=== PATIENT | male | born 1960 | race Caucasian/White ===

== ENCOUNTER → 2018-06-04 16:26 | Outpatient (REF) | payer MEDICARE, SELFPAY ==
[2018-06-08 02:10] LABS: Codeine Negative ng/mL (Cutoff: 25); Dihydrocodeine 629 ng/mL (Cutoff: 25); Hydrocodone 718 ng/mL (Cutoff: 25); Hydromorphone 210 ng/mL (Cutoff: 25); Morphine Negative ng/mL (Cutoff: 25); Naloxone Negative ng/mL (Cutoff: 25); Norhydrocodone 851 ng/mL (Cutoff: 25); Noroxycodone Negative ng/mL (Cutoff: 25); Noroxymorphone Negative ng/mL (Cutoff: 25); Opiates Interpretation Positive.
[2018-06-10 11:32] LABS: Amphetamine Negative ng/mL (Cutoff: 25); Amphetamines Interpretation Negative.; MDA (Ecstasy Metabolite) Negative ng/mL (Cutoff: 25); MDMA (Ecstasy) Negative ng/mL (Cutoff: 25); Methamphetamine Negative ng/mL (Cutoff: 25); Phentermine Negative ng/mL (Cutoff: 25); Pseudoephedrine/Ephedrine Negative ng/mL (Cutoff: 25)
== END ==
LOC: NCHCN 16:26
PROVIDERS: PCP Family Medicine; Visit Provider Family Medicine
DX: M79.605 Pain in left leg (principal); G89.29 Other chronic pain; Z79.891 Long term (current) use of opiate analgesic
CPT/HCPCS: 80324; 80361

== ENCOUNTER 2018-08-21 16:36 | Outpatient (REF) | payer MEDICARE, SELFPAY ==
[2018-08-26 07:24] LABS: Amphetamine Negative ng/mL (Cutoff: 25); Amphetamines Interpretation Negative.; MDA (Ecstasy Metabolite) Negative ng/mL (Cutoff: 25); MDMA (Ecstasy) Negative ng/mL (Cutoff: 25); Methamphetamine Negative ng/mL (Cutoff: 25); Phentermine Negative ng/mL (Cutoff: 25); Pseudoephedrine/Ephedrine Negative ng/mL (Cutoff: 25)
[2018-08-27] LABS: Codeine Negative ng/mL (Cutoff: 25); Dihydrocodeine 1145 ng/mL (Cutoff: 25); Hydrocodone 3025 ng/mL (Cutoff: 25); Hydromorphone 493 ng/mL (Cutoff: 25); Morphine Negative ng/mL (Cutoff: 25); Naloxone Negative ng/mL (Cutoff: 25); Norhydrocodone 2287 ng/mL (Cutoff: 25); Noroxymorphone 32 ng/mL (Cutoff: 25); Opiates Interpretation Positive.
== END 2018-08-21 16:56 ==
LOC: NCHCN 16:36
PROVIDERS: PCP Family Medicine; Visit Provider Family Medicine
DX: M79.606 Pain in leg, unspecified (principal); F11.20 Opioid dependence, uncomplicated; F15.20 Other stimulant dependence, uncomplicated
CPT/HCPCS: 80324; 80361

== ENCOUNTER 2018-12-21 10:41 | Outpatient (CLI) | payer MEDICARE, SELFPAY | END 2018-12-21 11:01 | PROVIDERS: PCP Family Medicine; Visit Provider Internal Medicine Interventional Cardiology | DX: I48.91 Unspecified atrial fibrillation (principal); I42.9 Cardiomyopathy, unspecified; G47.30 Sleep apnea, unspecified; E66.01 Morbid (severe) obesity due to excess calories; I77.819 Aortic ectasia, unspecified site; I10 Essential (primary) hypertension; E11.9 Type 2 diabetes mellitus without complications; Z79.4 Long term (current) use of insulin; F17.210 Nicotine dependence, cigarettes, uncomplicated | CPT/HCPCS: 93005; 93010; 99213 ==

== ENCOUNTER 2019-01-11 01:20 | Outpatient (CLI) | payer MEDICARE, SELFPAY ==
--- NOTE | 2019-01-11 14:45 | DI.RAD_ITS ---
SYMPTOM/DIAGNOSIS: CELLULITIS, L03.90, NO IMPROVING ON ANTIBIOTICS LEFT FOOT: Hardware is seen in the distal tibia. There are degenerative changes of the tibiotalar joint. The bones appear somewhat osteoporotic. Degenerative changes are noted at the talonavicular joint and navicular cuneiform joints as well as first MTP joint. No bony erosions are identified. There may be some dorsal soft tissue swelling. IMPRESSION: Degenerative changes. No fracture or evidence of bony erosions.
== END 2019-01-11 01:40 ==
PROVIDERS: PCP Family Medicine; Visit Provider Nurse Practitioner Family
DX: L03.116 Cellulitis of left lower limb (principal); M19.072 Primary osteoarthritis, left ankle and foot; M85.88 Other specified disorders of bone density and structure, other site; Z79.2 Long term (current) use of antibiotics
CPT/HCPCS: 73630

== ENCOUNTER 2019-03-17 00:26 | Outpatient (CLI) | payer MEDICARE, SELFPAY ==
--- NOTE | 2019-03-17 14:15 | MERGE_ITS ---
*[facility]* *[facility]* [address] [place] [address] Date of study: 03/17/2019 Transthoracic Echocardiography M-mode, complete 2D, complete spectral Doppler, and color Doppler *STUDY CONCLUSIONS* Impressions: Biventricular dysfunction, improved from the 2017 study. Summary: 1. Left ventricle: The cavity size was normal. Wall thickness was increased increased in a pattern of mild to moderate LVH. Systolic function was normal. The estimated ejection fraction was 55-60%. Wall motion was normal; there were no regional wall motion abnormalities. Findings consistent with diastolic dysfunction. 2. Aorta: The aorta was mildly dilated. 3. Left atrium: The atrium was mildly dilated. 4. Right ventricle: The cavity size was normal. Wall thickness was normal. Systolic function was normal. 5. Right atrium: The atrium was dilated. 6. Pulmonary arteries: Pulmonary systolic pressure was at the upper limits of normal, in the range of 40mm Hg to 45mm Hg. *PATIENT PRESENTATION* Height: 190.5cm ((75in) ) S/D Pressure: 112 / 68 Weight: 137.4kg ((302.4lb) ) BSA: 2.75m^2 Test start time: 02:20 PM. Test stop time: 03:20 PM. ORDERING Jaiden Lux MD REFERRING Jaiden Lux MD CONSULTING Briana Dorsey V PERFORMING Unknown PERFORMING [facility] [employer] MECH[employer]IC RT Rafy (R)(CT), LEXIS *PROCEDURE DATA* Procedure information: The patient was identified by two identifiers. This study was interpreted by [facility]. Pertinent images and digital data are archived for permanent storage and are available for subsequent review. Comparison was made to the study of 12/10/2016. Study status: Routine. Transthoracic echocardiography. M-mode, complete 2D, complete spectral Doppler, and color Doppler. A Transthoracic Echocardiogram was performed. Scanning was performed from the parasternal, apical, subcostal, and suprasternal notch acoustic windows. Images were obtained using an [id number] cardiac ultrasound machine. Image quality was adequate. Study completion: The patient tolerated the procedure well. There were no complications. History: PMH: Afib with RVR cardiomyopathy. I48.9+1, i42.9. *CARDIAC ANATOMY* Left ventricle: The cavity size was normal. Wall thickness was increased increased in a pattern of mild to moderate LVH. Systolic function was normal. The estimated ejection fraction was 55-60%. Wall motion was normal; there were no regional wall motion abnormalities. Findings consistent with diastolic dysfunction. Aortic valve: Trileaflet; normal thickness leaflets. Mobility was not restricted. Doppler: Transvalvular velocity was within the normal range. There was no stenosis. There was no significant regurgitation. VTI ratio of LVOT to aortic valve: 0.75. Valve area (VTI): 3.1cm^2. Indexed valve area (VTI): 1.1cm^2/m^2. Peak velocity ratio of LVOT to aortic valve: 0.77. Valve area (Vmax): 3.2cm^2. Indexed valve area (Vmax): 1.2cm^2/m^2. Mean velocity ratio of LVOT to aortic valve: 0.76. Valve area (Vmean): 3.2cm^2. Indexed valve area (Vmean): 1.2cm^2/m^2. Mean gradient (S): 4.4mm Hg. Peak gradient (S): 7mm Hg. Aorta: The aorta was mildly dilated. Aortic root: The aortic root was mildly dilated. Ascending aorta: The ascending aorta was mildly dilated. Mitral valve: Mildly thickened leaflets. Mobility was not restricted. Doppler: Transvalvular velocity was within the normal range. There was no evidence for stenosis. There was no significant regurgitation. Valve area by pressure half-time: 4.4cm^2. Indexed valve area by pressure half-time: 1.6cm^2/m^2. Peak gradient (D): 5.5mm Hg. Left atrium: The atrium was mildly dilated. Right ventricle: The cavity size was normal. Wall thickness was normal. Systolic function was normal. Pulmonic valve: Structurally normal valve. Doppler: Transvalvular velocity was within the normal range. There was no evidence for stenosis. There was no significant regurgitation. Peak gradient (S): 3.5mm Hg. Tricuspid valve: Structurally normal valve. Doppler: Transvalvular velocity was within the normal range. There was no evidence for stenosis. There was mild regurgitation. Pulmonary artery: Pulmonary systolic pressure was at the upper limits of normal, in the range of 40mm Hg to 45mm Hg. Right atrium: The atrium was dilated. Pericardium: There was no pericardial effusion. Systemic veins: Inferior vena cava: Well visualized. The vessel was patent and normal in size. The respirophasic diameter changes were in the normal range (greater than or equal to 50%). Baseline ECG: Normal sinus rhythm. Measurements Left ventricle Value 12/10/2016 Reference LV ID, ED, PLAX 5.2 cm 5.6 3.5 - 6.0 LV ID, ES, PLAX 3.3 cm 4.3 2.1 - 4.0 LV PW thickness, ED, PLAX 1.1 cm 1.4 LV end-diastolic volume, 109 ml 1-p A2C LV ejection fraction, 1-p 69 % 33 A2C LV end-diastolic volume, 123 ml 1-p A4C LV ejection fraction, 1-p 54 % 39 A4C LV e', lateral 0.088 m/sec LV E/e', lateral 13 LV e', medial 0.084 m/sec LV E/e', medial 14 LV e', average 0.086 m/sec LV E/e', average 14 Ventricular septum Value 12/10/2016 Reference IVS thickness, ED, PLAX 1.5 cm 1.4 LVOT Value 12/10/2016 Reference LVOT ID, A-P 2.3 cm 2.4 LVOT area 4.2 cm^2 4.4 LVOT peak velocity, S 1.02 m/sec 0.64 LVOT mean velocity, S 0.77 m/sec LVOT VTI, S 23.1 cm 13.7 LVOT peak gradient, S 4.2 mm Hg LVOT mean gradient, S 2.6 mm Hg 1.1 Stroke volume (SV), LVOT 97 ml DP Stroke index (SV/bsa), 35 ml/m^2 LVOT DP Aortic valve Value 12/10/2016 Reference Aortic valve peak 1.3 m/sec velocity, S Aortic valve mean 1.02 m/sec velocity, S Aortic valve VTI, S 31.0 cm Aortic mean gradient, S 4.4 mm Hg Aortic peak gradient, S 7 mm Hg VTI ratio, LVOT/AV 0.75 Aortic valve area, VTI 3.1 cm^2 3.3 Velocity ratio, peak, 0.77 LVOT/AV Aortic valve area, peak 3.2 cm^2 2.7 velocity Velocity ratio, mean, 0.76 LVOT/AV Aortic valve area, mean 3.2 cm^2 velocity Aortic valve area/bsa, 1.2 cm^2/m^2 mean velocity Aorta Value 12/10/2016 Reference Aortic root ID, ED 4.0 cm 3.9 Ascending aorta ID, A-P, S 3.9 cm 4.0 Left atrium Value 12/10/2016 Reference LA ID, A-P, ES 4.9 cm LA ID/bsa, A-P 1.8 cm/m^2 <=2.2 LA area, ES, A4C (H) 31.4 cm^2 34 8.8 - 23.4 LA area, ES, A2C 24 cm^2 LA volume/bsa, ES, 1-p A4C 43 ml/m^2 49 LA volume, ES, 2-p 84 ml LA volume/bsa, ES, 2-p 31 ml/m^2 LA/aortic root ratio 1.22 1.28 Mitral valve Value 12/10/2016 Reference Mitral E-wave peak 1.18 m/sec 1.14 velocity Mitral A-wave peak 0.6 m/sec velocity Mitral deceleration time 173 ms 150 - 230 Mitral pressure half-time 50 ms 34 Mitral peak gradient, D 5.5 mm Hg 5.2 Mitral E/A ratio, peak 1.96 Mitral valve area, PHT, DP 4.4 cm^2 6.5 Pulmonary veins Value 12/10/2016 Reference Pulmonary vein peak 0.54 m/sec velocity, S Pulmonary vein peak 0.68 m/sec velocity, D Pulmonary vein velocity 0.79 ratio, peak, S/D Pulmonary vein A-wave 0.27 m/sec reversal peak velocity Pulmonary vein A-wave 122 ms reversal duration Tricuspid valve Value 12/10/2016 Reference Tricuspid regurg peak 3.1 m/sec 2.7 velocity Tricuspid peak RV-RA 38.8 mm Hg 28.9 gradient Right atrium Value 12/10/2016 Reference RA area, ES, A4C (H) 29.1 cm^2 37 8.3 - 19.5 Pulmonic valve Value 12/10/2016 Reference Pulmonic peak gradient, S 3.5 mm Hg 2.2 Legend: (L) and (H) heide values outside specified reference range. I have personally reviewed the images and have reviewed and edited the reported findings. Electronically signed by Candelario Greenwood 03/18/2019 07:24
== END 2019-03-17 00:46 ==
PROVIDERS: PCP Family Medicine; Visit Provider Internal Medicine Interventional Cardiology
DX: I42.9 Cardiomyopathy, unspecified (principal); I48.91 Unspecified atrial fibrillation; I50.1 Left ventricular failure, unspecified; I51.7 Cardiomegaly; I10 Essential (primary) hypertension
CPT/HCPCS: 93306

== ENCOUNTER 2019-03-22 08:50 | Outpatient (CLI) | payer MEDICARE, SELFPAY | END 2019-03-22 09:10 | PROVIDERS: PCP Family Medicine; Visit Provider Internal Medicine Interventional Cardiology | DX: R07.9 Chest pain, unspecified (principal); I48.91 Unspecified atrial fibrillation; I42.9 Cardiomyopathy, unspecified | CPT/HCPCS: 93005; 93010 ==

== ENCOUNTER 2019-11-12 09:14 | Outpatient (REF) | payer MEDICARE, SELFPAY ==
[2019-11-12 19:30] LABS: HCT 43.4 % (40.0-50.0); HGB 14.2 g/dL (13.5-17.5); Mean Corp. HGB Concentration 32.7 g/dL (32.0-36.0); Mean Corpuscular Hemoglobin 30.9 pg (27.0-33.0); Mean Corpuscular Volume 94.3 fL (80-95); Mean Platelet Volume 9.5 fL (8.0-11.0); Platelet Count 291 x1000/uL (130-400); RBC Distribution Width 13.3 % (11.8-14.1); White Blood Cell Count 7.81 k/cumm (4.4-10.8)
[2019-11-12 19:50] LABS: ALT 20 U/L (16-63); AST 9 U/L (15-37); Albumin 3.6 g/dL (3.4-5.0); Alkaline Phosphatase 61 U/L (46-116); BUN 16 mg/dL (7-18); Bilirubin, Total 0.3 mg/dL (0.2-1.0); CREATININE 0.92 mg/dL (0.70-1.30); Calcium 8.7 mg/dL (8.5-10.1); Chloride 105 mmol/L (98-107); Magnesium 1.7 mg/dL (1.8-2.4); Potassium 4.8 mmol/L (3.5-5.1); Sodium 142 mmol/L (136-145); TSH (W/Ref FT4) 0.95 uIU/mL (0.36-3.74); Total Protein 6.6 g/dL (6.4-8.2)
[2019-11-12 19:57] LABS: Glucose 170 mg/dL (74-106)
[2019-11-15 09:44] LABS: PSA, Screening 0.3 ng/mL (0.0-4.5)
== END 2019-11-12 09:34 ==
LOC: NCHCN 09:14
PROVIDERS: PCP Family Medicine; Visit Provider Family Medicine
DX: E03.9 Hypothyroidism, unspecified (principal); E11.9 Type 2 diabetes mellitus without complications; I42.9 Cardiomyopathy, unspecified; E83.42 Hypomagnesemia; I48.91 Unspecified atrial fibrillation; I10 Essential (primary) hypertension; I25.10 Atherosclerotic heart disease of native coronary artery without angina pectoris; Z12.5 Encounter for screening for malignant neoplasm of prostate
CPT/HCPCS: 80053; 84153; 85027; 83735; 84443

== ENCOUNTER → 2019-12-28 15:06 | Outpatient (BNVA) | payer MEDICARE, SELFPAY | PROVIDERS: PCP Family Medicine; Referring Provider Family Medicine; Visit Provider Internal Medicine Cardiovascular Disease | DX: I25.10 Atherosclerotic heart disease of native coronary artery without angina pectoris (principal); I48.0 Paroxysmal atrial fibrillation; I42.8 Other cardiomyopathies; E11.9 Type 2 diabetes mellitus without complications; Z79.4 Long term (current) use of insulin | CPT/HCPCS: 99204; 99215 ==

== ENCOUNTER 2020-06-22 01:21 | Outpatient (CLI) | payer MEDICARE, SELFPAY ==
--- NOTE | 2020-06-22 11:59 | DI.RAD_ITS ---
EXAM: XR LUMBAR SPINE COMPLETE CLINICAL HISTORY: LOW BACK PAIN ACUTE, M54.5. TECHNIQUE: 2D digital imaging was performed. COMPARISON: No exams were available for comparison FINDINGS: There are 5 lumbar type vertebral bodies. There is normal alignment. No spondylolysis or spondyloli sthesis. Mild degenerative changes are seen at the facets at L5-S1. There are endplate osteophytes throughout the lumbar spine. Disc heights are otherwise well maintained. No acute fracture or sublu xation. Vascular calcifications are present. IMPRESSION: Bges-ey-ofadjyil degenerative changes in the lumbar spine. DATA REPOSITORY: RADIATION DOSE DELIVERED:
== END 2020-06-22 01:41 ==
PROVIDERS: PCP Family Medicine; Visit Provider Family Medicine
DX: M47.816 Spondylosis without myelopathy or radiculopathy, lumbar region (principal); M54.5 Low back pain
CPT/HCPCS: 72110

== ENCOUNTER → 2020-07-27 13:50 | Outpatient (BNVA) | payer MEDICARE, SELFPAY | PROVIDERS: PCP Family Medicine; Referring Provider Family Medicine; Visit Provider Internal Medicine Cardiovascular Disease | DX: I48.0 Paroxysmal atrial fibrillation (principal); G47.30 Sleep apnea, unspecified; I10 Essential (primary) hypertension; F17.210 Nicotine dependence, cigarettes, uncomplicated; E11.9 Type 2 diabetes mellitus without complications; Z79.4 Long term (current) use of insulin | CPT/HCPCS: 99214 ==

== ENCOUNTER 2021-02-23 02:15 | Outpatient (CLI) | payer MEDICARE, SELFPAY ==
[2021-02-23 11:55] LABS: HCT 45.6 % (40.0-50.0); HGB 14.8 g/dL (13.5-17.5); MCHC 32.5 % (32.0-36.0); MCV 95.6 fL (80-95); MPV 9.2 fL (8.0-11.0); Platelet Count 297 10^3/uL (130-400); RBC 4.77 10^6/uL (4.36-5.78); RDW 12.6 % (11.8-14.1); RDW-SD 45.1 fL; WBC 8.59 10^3/uL (4.4-10.8)
[2021-02-23 12:52] LABS: Hemoglobin A1C 8.2 % (<5.7)
[2021-02-23 14:27] LABS: ALT 26 U/L (16-63); AST 12 U/L (15-37); Albumin 3.7 g/dL (3.4-5.0); Alkaline Phosphatase 75 U/L (46-116); Anion Gap 9.2 mmol/L (3-11); BUN 22 mg/dL (7-18); Bilirubin, Total 0.4 mg/dL (0.2-1.0); CO2 29.8 mmol/L (21.0-32.0); CREATININE 1.1 mg/dL (0.70-1.30); Calculated LDL 46 mg/dL (<100); Chloride 103 mmol/L (98-107); Cholesterol 92 mg/dL (<200); Glucose 165 mg/dL (74-106); HDL Cholesterol 22 mg/dL (40-60); Potassium 5.2 mmol/L (3.5-5.1); Sodium 142 mmol/L (136-145); TSH 1.97 uIU/mL (0.36-3.74); Total Protein 7.6 g/dL (6.4-8.2); Triglyceride 124 mg/dL (<150); Vitamin B12 284 pg/mL (193-986)
[2021-02-23 15:31] LABS: FREE T4 1.34 ng/dL (0.76-1.46)
== END 2021-02-23 02:16 | disposition home or self-care (01) ==
LOC: LBO 02:15
PROVIDERS: PCP Family Medicine; Visit Provider Family Medicine
DX: E03.9 Hypothyroidism, unspecified (principal); E11.9 Type 2 diabetes mellitus without complications; I48.91 Unspecified atrial fibrillation; Z79.01 Long term (current) use of anticoagulants; M67.941 Unspecified disorder of synovium and tendon, right hand; Z79.899 Other long term (current) drug therapy
CPT/HCPCS: 36415; 80053; 80061; 85027; 82607; 83036; 84439; 84443

== ENCOUNTER → 2021-03-06 13:55 | Outpatient (BNVA) | payer MEDICARE, SELFPAY | PROVIDERS: PCP Family Medicine; Referring Provider Family Medicine; Visit Provider Internal Medicine Cardiovascular Disease | DX: I48.0 Paroxysmal atrial fibrillation (principal); I42.8 Other cardiomyopathies | CPT/HCPCS: 99214; 99213 ==

== ENCOUNTER 2021-06-18 21:02 | Outpatient (REF) | payer MEDICARE, SELFPAY | END 2021-06-18 21:03 | disposition home or self-care (01) | LOC: NCHCN 21:02 | PROVIDERS: PCP Family Medicine; Visit Provider Nurse Practitioner Family | DX: L03.116 Cellulitis of left lower limb (principal) | CPT/HCPCS: 87077; 87070; 87186; 87205 ==

== ENCOUNTER 2021-08-02 12:09 | Outpatient (CLI) | payer MEDICARE, SELFPAY ==
[2021-08-02 15:54] LABS: Abs Immature Grans 0.02 10^3/uL (0.0-0.06); Absolute Basophil Count 0.06 10^3/uL (0.0-0.2); Absolute Eosinophil Count 0.33 10^3/uL (0.0-0.7); Absolute Lymphocyte Count 2.96 10^3/uL (1.2-3.4); Absolute Monocyte Count 0.68 10^3/uL (0.1-0.8); Absolute Neutrophil Count 4.03 10^3/uL (1.2-6.7); Basophils % 0.7; Eosinophils % 4.1; HCT 42.9 % (40.0-50.0); HGB 14.1 g/dL (13.5-17.5); Immature Grans % 0.2; Lymphocytes % 36.6; MCH 31.3 pg (27.0-33.0); MCHC 32.9 % (32.0-36.0); MCV 95.1 fL (80-95); Monocytes % 8.4; Nucleated RBC 0 %; Platelet Count 318 10^3/uL (130-400); RBC 4.51 10^6/uL (4.36-5.78); RDW 13.1 % (11.8-14.1); RDW-SD 45.8 fL; WBC 8.08 10^3/uL (4.4-10.8)
[2021-08-02 16:43] LABS: Anion Gap 10.5 mmol/L (3-11); BUN 15 mg/dL (7-18); CO2 26.5 mmol/L (21.0-32.0); CREATININE 1.1 mg/dL (0.70-1.30); Calcium 8.8 mg/dL (8.5-10.1); Chloride 105 mmol/L (98-107); Glucose 78 mg/dL (74-106); Potassium 4.6 mmol/L (3.5-5.1); Sodium 142 mmol/L (136-145)
== END 2021-08-02 12:10 | disposition home or self-care (01) ==
LOC: LBO 08-03 12:10
PROVIDERS: PCP Family Medicine; Visit Provider Nurse Practitioner Family
DX: L03.116 Cellulitis of left lower limb (principal); M79.672 Pain in left foot
CPT/HCPCS: 36415; 80048; 83036; 85025

== ENCOUNTER → 2021-08-02 14:35 | Outpatient (CLI) | payer MEDICARE, SELFPAY ==
--- NOTE | 2021-08-02 | DI.RAD_ITS ---
Exam(s) XR FOOT LT COMPLETE EXAM: XR FOOT LT COMPLETE CLINICAL HISTORY: PUNCTURE WOUND,LT FOOT PAIN, M79.672,UNCONTROLLED DIABETES, ? OSTEOMYELITIS TECHNIQUE: COMPARISON: CR XR foot LT complete from 01/11/2019 FINDINGS: Three views were obtained. There is reportedly a puncture wound and there may be minimal gas in the soft tissues on the plantar surface of foot adjacent to the 1st metatarsal head. There is no underly ing bony abnormality seen by plain film criteria. Note is made of mild degenerative changes of the joints of the foot. There is plate and screw fixati on in place in the tibia which is incompletely visualized. IMPRESSION: No radiographic evidence of osteomyelitis. If there is a clinical suspicion of osteomyelitis additio nal evaluation with MRI should be considered. RADIATION DOSE DELIVERED: Total DLP
== END ==
PROVIDERS: PCP Family Medicine; Visit Provider Nurse Practitioner Family
DX: M79.672 Pain in left foot (principal)
CPT/HCPCS: 36415; 80048; 73630; 85025

== ENCOUNTER 2021-08-02 15:35 | Outpatient (REF) | payer MEDICARE, SELFPAY | END 2021-08-02 15:36 | disposition home or self-care (01) | LOC: NCHCN 15:35 | PROVIDERS: PCP Family Medicine; Visit Provider Nurse Practitioner Family | DX: M79.672 Pain in left foot (principal) | CPT/HCPCS: 87077; 87070; 87186; 87205 ==

== ENCOUNTER → 2021-10-05 11:39 | Outpatient (CLI) | payer MEDICARE, SELFPAY ==
--- NOTE | 2021-10-05 | DI.RAD_ITS ---
Exam(s) XR CHEST 2V PA LATERAL EXAM: XR CHEST 2V PA LATERAL CLINICAL HISTORY: ACUTE COUGH, R05.1 TECHNIQUE: 2D digital imaging was performed of the chest. Three images were obtained. PA and later al views were obtained. COMPARISON: CR CHEST 2 VIEWS PA,LAT from 12/10/2016 CR CHEST 2 VIEWS PA,LAT from 12/10/2016 FINDINGS: MEDIASTINUM: Normal. HEART: Normal. PULMONARY VASCULATURE: Normal. LUNGS: Clear. PLEURAL SPACE: No pleural effusion or pneumothorax. BONE:Within normal limits for the patient's age. OTHER FINDINGS:Normal. IMPRESSION: No acute pulmonary findings. DATA REPOSITORY: RADIATION DOSE DELIVERED:
[2021-10-05 12:33] LABS: HCT 44.8 % (40.0-50.0); HGB 14.2 g/dL (13.5-17.5); MCH 30.7 pg (27.0-33.0); MCHC 31.7 % (32.0-36.0); MCV 96.8 fL (80-95); MPV 8.7 fL (8.0-11.0); Nucleated RBC 0 %; Platelet Count 209 10^3/uL (130-400); RBC 4.63 10^6/uL (4.36-5.78); RDW 13.4 % (11.8-14.1); RDW-SD 47.9 fL; WBC 5.24 10^3/uL (4.4-10.8)
[2021-10-05 12:52] LABS: Bands % 2
[2021-10-05 12:53] LABS: Absolute Eosinophil Count 0.21 10^3/uL (0.0-0.7); Absolute Lymphocyte Count 2.46 10^3/uL (1.2-3.4); Absolute Monocyte Count 0.68 10^3/uL (0.1-0.8); Absolute Neutrophil Count 1.78 10^3/uL (1.2-6.7); Atypical Lymphocytes % 9; Diff Comment Manual Differential; RBC Morphology Normal
[2021-10-05 13:29] LABS: NT-proBNP 496 pg/mL (<300)
== END ==
PROVIDERS: PCP Family Medicine; Visit Provider Nurse Practitioner Family
DX: R05.1 Acute cough (principal)
CPT/HCPCS: 36415; 71046; 83880; 85025

== ENCOUNTER 2021-12-21 12:25 | Outpatient (REF) | payer MEDICARE, SELFPAY ==
[2021-12-21 12:21] LABS: Anion Gap 4.4 mmol/L (3-11); BUN 12 mg/dL (7-18); CO2 31.6 mmol/L (21.0-32.0); CREATININE 1.1 mg/dL (0.70-1.30); Calcium 8.5 mg/dL (8.5-10.1); Chloride 104 mmol/L (98-107); Glucose 214 mg/dL (74-106); Potassium 4.8 mmol/L (3.5-5.1); Sodium 140 mmol/L (136-145)
[2021-12-21 12:28] LABS: Hemoglobin A1C 8.3 % (<5.7)
== END 2021-12-21 12:26 | disposition home or self-care (01) ==
LOC: NCHCN 12:25
PROVIDERS: PCP Family Medicine; Visit Provider Family Medicine
DX: E11.9 Type 2 diabetes mellitus without complications (principal); E03.9 Hypothyroidism, unspecified; E78.2 Mixed hyperlipidemia
CPT/HCPCS: 80048; 83036

== ENCOUNTER 2021-12-28 10:32 | Outpatient (CLI) | payer MEDICARE, SELFPAY ==
[2021-12-28 13:10] VITALS: BP 108/75; PULSE 80; RESP 16; TEMP 36.3; O2SAT 97
== END 2021-12-28 10:33 | disposition home or self-care (01) ==
LOC: INF 10:34
PROVIDERS: PCP Family Medicine; Visit Provider Family Medicine
DX: U07.1 COVID-19 (principal)
CPT/HCPCS: 96365; Q0047

== ENCOUNTER → 2022-03-14 10:10 | Outpatient (BNVA) | payer MEDICARE, SELFPAY | PROVIDERS: PCP Family Medicine; Referring Provider Family Medicine; Visit Provider Internal Medicine Cardiovascular Disease | DX: I48.19 Other persistent atrial fibrillation (principal); I42.8 Other cardiomyopathies; I25.10 Atherosclerotic heart disease of native coronary artery without angina pectoris | CPT/HCPCS: 99214; 99213 ==

== ENCOUNTER 2022-10-03 03:00 | Outpatient (CLI) | payer MEDICARE, SELFPAY ==
[2022-10-03 17:00] LABS: Abs Immature Grans 0.03 10^3/uL (0.0-0.06); Absolute Basophil Count 0.04 10^3/uL (0.0-0.2); Absolute Lymphocyte Count 2.84 10^3/uL (1.2-3.4); Absolute Monocyte Count 0.71 10^3/uL (0.1-0.8); Absolute Neutrophil Count 5.55 10^3/uL (1.2-6.7); Basophils % 0.4; Eosinophils % 2.1; HCT 43.7 % (40.0-50.0); HGB 14.3 g/dL (13.5-17.5); Immature Grans % 0.3; Lymphocytes % 30.3; MCH 31.2 pg (27.0-33.0); MCHC 32.7 % (32.0-36.0); MCV 95 fL (80-95); MPV 8.7 fL (8.0-11.0); Monocytes % 7.6; Neutrophils % 59.3; Platelet Count 320 10^3/uL (130-400); RBC 4.58 10^6/uL (4.36-5.78); RDW 12.8 % (11.8-14.1); RDW-SD 44.9 fL; WBC 9.37 10^3/uL (4.4-10.8)
[2022-10-03 17:02] LABS: ESR 8 mm/hr (0-20)
[2022-10-03 17:36] LABS: Hemoglobin A1C 9.6 % (<5.7)
[2022-10-03 17:45] LABS: ALT 76 U/L (16-63); AST 35 U/L (15-37); Albumin 3.6 g/dL (3.4-5.0); Alkaline Phosphatase 85 U/L (46-116); BUN 15 mg/dL (7-18); Bilirubin, Total 0.3 mg/dL (0.2-1.0); C-Reactive Protein 0.15 mg/dL (0.0-0.3); CREATININE 1.1 mg/dL (0.70-1.30); Calcium 9.3 mg/dL (8.5-10.1); Chloride 103 mmol/L (98-107); Estimated GFR 74.96 (mL/min/1.73m2); Glucose 186 mg/dL (74-106); Magnesium 2.2 mg/dL (1.8-2.4); Potassium 5.5 mmol/L (3.5-5.1); Sodium 140 mmol/L (136-145); TSH (W/Ref FT4) 1.82 uIU/mL (0.36-3.74); Total Protein 6.8 g/dL (6.4-8.2)
[2022-10-04 21:32] LABS: PSA, Screening 0.7 ng/mL (<=4.5)
== END 2022-10-03 03:01 | disposition home or self-care (01) ==
LOC: LBO 03:00
PROVIDERS: PCP Family Medicine; Visit Provider Family Medicine
DX: E11.621 Type 2 diabetes mellitus with foot ulcer (principal); I10 Essential (primary) hypertension; E03.9 Hypothyroidism, unspecified; E78.2 Mixed hyperlipidemia; Z79.01 Long term (current) use of anticoagulants; Z00.00 Encounter for general adult medical examination without abnormal findings; L84 Corns and callosities; Z12.5 Encounter for screening for malignant neoplasm of prostate
CPT/HCPCS: 36415; 80053; 84153; 85652; 83036; 83735; 84443; 85025; 86140

== ENCOUNTER 2023-03-13 09:13 | Outpatient (CLI) | payer MEDICARE, SELFPAY | END 2023-03-13 09:14 | disposition home or self-care (01) | LOC: DI.CARD 09:14 | PROVIDERS: PCP Family Medicine; Visit Provider Internal Medicine Cardiovascular Disease | DX: I48.0 Paroxysmal atrial fibrillation (principal); I25.10 Atherosclerotic heart disease of native coronary artery without angina pectoris | CPT/HCPCS: 93010 ==

== ENCOUNTER 2023-04-14 09:08 | Outpatient (CLI) | payer MEDICARE, SELFPAY ==
--- NOTE | 2023-04-14 09:00 | RT.EKG_ITS ---
APPROVED REPORT Exam: Resting ECG Reason for Exam: afib, cad Patient Location: O HR:91 bpm ECG Measurements Heart Rate 91 AXIS ID [id number] P [id number] QRSd 91 QRS 40 QT 341 T 31 QTc 420 Conclusion Atrial fibrillation...? atrial activity Low voltage, extremity leads...all extremity leads <0.5mV Baseline wander in lead(s) V5,V6
== END 2023-04-14 09:09 | disposition home or self-care (01) ==
LOC: DI.CARD 09:09
PROVIDERS: PCP Family Medicine; Visit Provider Internal Medicine Cardiovascular Disease
DX: I25.10 Atherosclerotic heart disease of native coronary artery without angina pectoris (principal); I48.19 Other persistent atrial fibrillation
CPT/HCPCS: 93010

== ENCOUNTER → 2023-04-14 10:24 | Outpatient (BNVA) | payer MEDICARE, SELFPAY | PROVIDERS: PCP Family Medicine; Referring Provider Family Medicine; Visit Provider Internal Medicine Cardiovascular Disease | DX: I42.8 Other cardiomyopathies (principal); I48.21 Permanent atrial fibrillation; Z79.01 Long term (current) use of anticoagulants | CPT/HCPCS: 93005; 99214 ==

== ENCOUNTER 2023-10-28 15:46 | Outpatient (REF) | payer MEDICARE, SELFPAY ==
[2023-10-28 19:53] LABS: HGB 13.2 g/dL (13.5-17.5); MCH 30.6 pg (27.0-33.0); MCHC 32.2 % (32.0-36.0); MCV 95 fL (80-95); MPV 9.1 fL (8.0-11.0); Platelet Count 287 10^3/uL (130-400); RBC 4.32 10^6/uL (4.36-5.78); RDW 13.3 % (11.8-14.1); RDW-SD 47.2 fL; WBC 7.78 10^3/uL (4.4-10.8)
[2023-10-28 20:13] LABS: Albumin 3.3 g/dL (3.4-5.0); BUN 13 mg/dL (7-18); Bilirubin, Total 0.3 mg/dL (0.2-1.0); CREATININE 1.1 mg/dL (0.70-1.30); Glucose 143 mg/dL (74-106); Potassium 5.3 mmol/L (3.5-5.1); Total Protein 6.5 g/dL (6.4-8.2)
[2023-10-28 22:23] LABS: ALT 42 U/L (16-63); AST 19 U/L (15-37); Alkaline Phosphatase 72 U/L (46-116); Anion Gap 7.8 mmol/L (3-11); CO2 28.2 mmol/L (21.0-32.0); Calcium 8.9 mg/dL (8.5-10.1); Chloride 106 mmol/L (98-107); Sodium 142 mmol/L (136-145)
== END 2023-10-28 15:47 | disposition home or self-care (01) ==
LOC: NCHCN 15:46
PROVIDERS: PCP Family Medicine; Visit Provider Family Medicine
DX: Z00.00 Encounter for general adult medical examination without abnormal findings (principal)
CPT/HCPCS: 80053; 85027; 84443

== ENCOUNTER → 2024-03-23 13:27 | Outpatient (BNVA) | payer MEDICARE, SELFPAY | PROVIDERS: PCP Family Medicine; Referring Provider Family Medicine; Visit Provider Podiatrist | DX: E11.621 Type 2 diabetes mellitus with foot ulcer (principal); L97.522 Non-pressure chronic ulcer of other part of left foot with fat layer exposed | CPT/HCPCS: 11042 ==

== ENCOUNTER 2024-03-23 14:02 | Outpatient (REF) | payer MEDICARE, SELFPAY | END 2024-03-23 14:03 | disposition home or self-care (01) | LOC: LBN 14:02 | PROVIDERS: PCP Family Medicine; Visit Provider Podiatrist | DX: L97.522 Non-pressure chronic ulcer of other part of left foot with fat layer exposed (principal) | CPT/HCPCS: 87070; 87075; 87205 ==

== ENCOUNTER → 2024-04-06 03:30 | Outpatient (CLI) | payer MEDICARE, SELFPAY ==
--- NOTE | 2024-04-06 08:44 | DI.RAD_ITS ---
Exam(s) XR FOOT RT COMPLETE EXAM: XR FOOT RT COMPLETE CLINICAL HISTORY: Comparison,RT FOOT PAIN,M79.671. TECHNIQUE: 2D digital imaging was performed. COMPARISON: CR XR FOOT LT COMPLETE from 04/06/2024 FINDINGS: 3 views No evidence of fracture or diastasis of the Lisfranc joint. Great toe metatarsophalangeal joint appe ars unremarkable. Bone density normal. No osseous lesions. No erosions. No inferior calcaneal spu r. IMPRESSION: No acute osseous findings in the foot. DATA REPOSITORY: RADIATION DOSE DELIVERED:
--- NOTE | 2024-04-06 08:44 | DI.RAD_ITS ---
Exam(s) XR FOOT LT COMPLETE EXAM: XR FOOT LT COMPLETE CLINICAL HISTORY: Left fourth MPJ DIABETIC ULCER. TECHNIQUE: 2D digital imaging was performed. COMPARISON: CR XR FOOT LT COMPLETE from 08/02/2021 FINDINGS: 3 views Again noted is a fixation plate in the tibia, partially included. There is no evidence of fracture in the foot. No diastasis of the Lisfranc joint. Great toe metatar sophalangeal joint appears unremarkable. No osseous lesions nor erosions. No radiopaque foreign bod ies. IMPRESSION: No acute osseous findings. DATA REPOSITORY: RADIATION DOSE DELIVERED:
== END ==
PROVIDERS: PCP Family Medicine; Visit Provider Podiatrist
DX: M79.671 Pain in right foot (principal); E11.622 Type 2 diabetes mellitus with other skin ulcer; M79.672 Pain in left foot
CPT/HCPCS: 11042; 11721; 73630

== ENCOUNTER → 2024-04-13 02:04 | Outpatient (CLI) | payer MEDICARE, SELFPAY ==
--- NOTE | 2024-04-13 08:08 | DI.RAD_ITS ---
Exam(s) XR RIBS LT W PA LAT CHEST CLINICAL HISTORY PLEURODYNIA,RIB PAIN,R07.81,H/O INJURY. COMPARISON: CR XR CHEST 2V PA LATERAL from 10/05/2021 TECHNIQUE:: PA and lateral views of the chest and four views of the left ribs were performed. FINDINGS: LUNGS: Clear. No pleural abnormality seen. HEART: Normal. MEDIASTINUM: Normal. BONES: No displaced rib fracture is seen. No compression fractures are seen in the thoracic spine. No bony destructive lesion is seen. OTHER FINDINGS: None. IMPRESSION: 1. Unremarkable radiographic appearance of the left ribs. 2. No acute pulmonary findings.
== END ==
PROVIDERS: PCP Family Medicine; Visit Provider Family Medicine
DX: R07.81 Pleurodynia (principal)
CPT/HCPCS: 71046; 71100

== ENCOUNTER → 2024-04-26 11:28 | Outpatient (BNVA) | payer MEDICARE, SELFPAY | PROVIDERS: PCP Family Medicine; Referring Provider Family Medicine; Visit Provider Podiatrist | DX: E11.621 Type 2 diabetes mellitus with foot ulcer (principal); E11.622 Type 2 diabetes mellitus with other skin ulcer; L97.522 Non-pressure chronic ulcer of other part of left foot with fat layer exposed; B35.1 Tinea unguium; L60.3 Nail dystrophy; B07.0 Plantar wart | CPT/HCPCS: 11042 ==

== ENCOUNTER → 2024-05-27 15:08 | Outpatient (BNVA) | payer MEDICARE, SELFPAY | PROVIDERS: PCP Family Medicine; Referring Provider Family Medicine; Visit Provider Physical Therapy Assistant | DX: L97.522 Non-pressure chronic ulcer of other part of left foot with fat layer exposed (principal) | CPT/HCPCS: 93922 ==

== ENCOUNTER 2024-06-03 01:12 | Emergency (ER) | payer MEDICARE, SELFPAY ==
--- NOTE | 2024-06-03 01:15 | DI.CT_ITS ---
Exam(s) CT CHEST W EXAM: CT CHEST W CLINICAL HISTORY: fall on anterior ribs/sternum, eval for fx TECHNIQUE: Imaging Protocol: Axial computed tomography images with coronal and sagittal reformatted images were created and reviewed CONTRAST MATERIAL: Intravenous: Omnipaque 350Contrast volume:70 mL. COMPARISON: CR XR CHEST 2V PA LATERAL from 10/05/2021 CR XR RIBS LT W PA LAT CHEST from 04/13/2024 FINDINGS: Tracheobronchial tree: There is mild bronchial wall thickening seen in the left lower lobe. Pulmonary parenchyma: There is a 3 mm nodule in the left upper lobe (series 2, image 87). There is a small left pleural effusion and subjacent infiltrate. There is also small infiltrate seen in the le ft lingula. The right lung appears clear. No architectural distortion. Mediastinum and Mary Jane: No dominant adenopathy or fluid collection. The esophagus is unremarkable. Thyroid gland: Hypodense nodules are seen in the thyroid gland. The largest is seen in the left and measures 1.6 cm by 1.3 cm (series 4, image 3). Nonemergent thyroid ultrasound is recommended for fur ther evaluation. Pleura: There is no evidence of a right pleural effusion. No pneumothorax. Heart: The heart is not dilated. No coronary artery calcifications are seen. No pericardial effusion. Aorta: Thoracic aorta non-dilated. No evidence of dissection. Atherosclerotic calcification is prese nt. Pulmonary arteries: The pulmonary arteries are insufficiently opacified for evaluation of pulmonary e mboli. Upper abdomen: There is a simple cyst in the left kidney. No follow-up is recommended. Lymph nodes: Within normal limits. Bones: Within normal limits for the patient's age. There are nondisplaced fracture seen on the left. This is most evident at the anterior aspect of the left 5th rib. There is a subacute healing fract ure of the posterior lateral aspect of the left 11th rib. There are old healed right rib fracture de formities. Soft tissues: Unremarkable. IMPRESSION: 1. Acute left rib fracture most marked at the anterior aspect of the left 5th rib. The fracture is n ondisplaced. 2. No pneumothorax. 3. Subacute fracture of posterior left 11th rib. 4. Small left pleural effusion and atelectasis in the lingula and left lower lobe. 5. New elevation of the left hemidiaphragm. RADIATION DOSE DELIVERED: Total DLP DATA REPOSITORY: All CT scans at this facility are submitted to the National Radiology Data Registry (NRDR) Dose Index Registry (DIR) with the [employer] (A[employer]). RADIATION OPTIMIZATION: All CT scans at this facility use at least one of these dose optimization te chniques: automated exposure control; mA and/or kV adjustment per patient size (includes targeted exa ms where dose is matched to clinical indication); or iterative reconstruction.
[2024-06-03 01:16] VITALS: BP 126/72; PULSE 62; RESP 22; TEMP 36.7; O2SAT 98
[2024-06-03 01:32] VITALS: BP 126/62; PULSE 62; RESP 20; TEMP 36.8; O2SAT 98
--- NOTE | 2024-06-03 01:34 | ED.GENADUL_ITS ---
Discharge Plan Disposition Patient Disposition: Home Condition: Good Discharge Details Chief Complaint: GenMedical Clinical Impression: Chest wall contusion, Fracture of rib, Compression fracture of body of thoracic vertebra Primary Care Provider: Briana Dorsey V ED Provider: Shayne Sears Home Meds and New Rx's Prescriptions: No Action insulin asp prt-insulin aspart [Novolog Mix 70-30FlexPen U-100] 100 unit/mL (70-30) insulin pen 8 unit SC QPM Patient Comments: 12/21/18-6 units SQ Qam pantoprazole 40 mg tablet,delayed release (DR/EC) 40 mg PO DAILY budesonide-formoterol [Symbicort] 160-4.5 mcg/actuation HFA aerosol inhaler 2 puff inhalation BID trazodone 50 mg tablet 50 mg PO QHS PRN triamcinolone acetonide 0.1 % cream 1 applic topical BID Santyl 250 unit/gram ointment 1 applic topical DAILY Qty: 90 0RF Rx Instructions: 20mmx [id number] ketoconazole 2 % cream 1 applic topical DAILY Qty: 60 3RF Rx Instructions: Apply to toenails once daily bisacodyl [Dulcolax (bisacodyl)] 5 mg tablet,delayed release (DR/EC) 5 mg PO ONCE Qty: 4 0RF Rx Instructions: Take per colonoscopy instructions provided by ordering providers office polyethylene glycol 3350 17 gram/dose powder 17 g PO ONCE Qty: 238 0RF Rx Instructions: Take per colonoscopy instructions provided by ordering providers office magnesium oxide 500 mg tablet 500 mg PO BID metoprolol succinate 50 mg tablet extended release 24 hr 50 mg PO QPM insulin glargine [Lantus Solostar U-100 Insulin] 100 unit/mL (3 mL) insulin pen 22 unit subcut BID Patient Comments: 04/14/23 pt states he takes 28 units at night RH levothyroxine 25 MCG tablet 50 mcg PO DAILY metoprolol succinate 50 MG tablet extended release 24 hr 100 mg PO DAILY Qty: 4 Rx Instructions: 100mg QAM; 50MG QPM nitroglycerin 0.4 mg tablet, sublingual 0.4 mg Buccal ONCE PRN ibuprofen 800 mg tablet 800 mg PO BID PRN albuterol sulfate [ProAir HFA] 90 mcg/actuation HFA aerosol inhaler 2 puff inhalation Q6H PRN lisinopril 2.5 mg tablet 5 mg PO DAILY indomethacin 50 mg capsule 50 mg PO TID PRN Rx Instructions: administer with food or milk cholecalciferol (vitamin D3) 25 mcg (1,000 unit) capsule 25 mcg PO DAILY loratadine 10 mg tablet 10 mg PO DAILY furosemide 20 mg tablet 20 mg PO DAILY atorvastatin [Lipitor] 20 mg tablet 20 mg PO DAILY Qty: 60 metformin 500 MG tablet 1,000 mg PO BID 0RF diltiazem HCl 120 MG capsule,extended release 24hr 120 mg PO QPM 30 Days 1RF Eliquis 5 MG tablet 5 mg PO BID Qty: 60 1RF Discharge Instructions Instructions: Blunt Chest Trauma ED Additional Instructions: At this time the CAT scan shows no evidence of sternal fracture, popped lung, or significant pneumonia. You do have an old fracture of your T12 vertebral body, as well as a fracture of the 12th rib on the left. Please apply Voltaren gel to your sternum area to help with the pain. Please continue to take 1000 mg of Tylenol every 6-8 hours. This is the maximum dose. Please take the [place] pills only as needed for breakthrough pain. If you notice any worsening of your symptoms, or any new symptoms such as vomiting, diarrhea, fever, chills, shortness of breath, chest pain, numbness, weakness, or fainting , please return immediately to the emergency department for reevaluation. Please follow up with your primary care provider as soon as possible for reassessment and reevaluation. As always, it was a pleasure participating in your medical care today. Referrals: Briana Dorsey MD [Primary Care Provider] - [facility] General Date/Time Provider Initiated Documentation: 06/03/24 01:16 . 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 About 6 weeks ago the patient fell and hit his left ribs, chest x-ray was performed outpatient and was found to be negative. Then 6 days ago the patient fell forward and landed with his sternum onto a wood pile and had to get pain then which has continued until now. He admits to pain with breathing, pain with movement and pain with palpation of the anterior chest wall. He denies fever or chills. He does have a chronic cough with yellow sputum which is unchanged. No hemoptysis. He denies any arm or back pain. He does take daily prescribed ibuprofen which has not been helping. Chronic baseline oxygen levels are between 90 to 93% and this has been unchanged. Related Data Home Medications ?Medication ?Instructions ?Recorded ?Confirmed levothyroxine 25 mcg tablet 50 mcg PO DAILY 05/29/15 06/03/24 apixaban 5 mg tablet (Eliquis) 5 mg PO BID #60 tabs 12/12/16 06/03/24 diltiazem HCl 120 mg 120 mg PO QPM 30 days 12/12/16 06/03/24 capsule,extended release 24 hr metformin 500 mg tablet 1,000 mg (2 x 500 mg) PO BID 12/12/16 06/03/24 metoprolol succinate 50 mg 100 mg PO DAILY #4 tab-caps 02/03/17 06/03/24 tablet,extended release 24 hr insulin aspar prot-insulin aspart 8 unit subcut QPM 03/22/19 06/03/24 100 unit/mL (70-30) subcutaneous pen (Novolog Mix 70-30FlexPen U-100) magnesium oxide 500 mg PO BID 03/22/19 06/03/24 metoprolol succinate 50 mg 50 mg PO QPM 03/22/19 06/03/24 tablet,extended release 24 hr nitroglycerin 0.4 mg sublingual 0.4 mg buccal ONCE PRN 03/22/19 06/03/24 tablet albuterol sulfate 90 mcg/actuation 2 puff inhalation Q6H PRN 04/03/21 06/03/24 aerosol inhaler (ProAir HFA) ibuprofen 800 mg tablet 800 mg PO BID PRN 04/03/21 06/03/24 indomethacin 50 mg capsule 50 mg PO TID PRN 03/14/22 06/03/24 lisinopril 2.5 mg tablet 5 mg PO DAILY 03/14/22 06/03/24 cholecalciferol (vitamin D3) 25 25 mcg PO DAILY 03/26/22 06/03/24 mcg (1,000 unit) capsule furosemide 20 mg tablet 20 mg PO DAILY 03/26/22 06/03/24 loratadine 10 mg tablet 10 mg PO DAILY 03/26/22 06/03/24 insulin glargine 100 unit/mL (3 22 unit subcut BID 04/14/23 06/03/24 mL) subcutaneous pen (Lantus Solostar U-100 Insulin) atorvastatin 20 mg tablet (Lipitor) 20 mg PO DAILY #60 tab-caps 01/16/24 06/03/24 budesonide-formoterol HFA 160 2 puff inhalation BID 03/17/24 06/03/24 mcg-4.5 mcg/actuation aerosol inhaler (Symbicort) pantoprazole 40 mg tablet,delayed 40 mg PO DAILY 03/17/24 06/03/24 release trazodone 50 mg tablet 50 mg PO QHS PRN 03/17/24 06/03/24 triamcinolone acetonide 0.1 % 1 applic topical BID 03/17/24 06/03/24 topical cream collagenase clostridium histo. 250 1 applic topical DAILY #90 grams 03/23/24 06/03/24 unit/gram topical ointment (Santyl) ketoconazole 2 % topical cream 1 applic topical DAILY #60 grams 04/06/24 06/03/24 bisacodyl 5 mg tablet,delayed 5 mg PO ONCE #4 tabs 05/27/24 06/03/24 release (Dulcolax (bisacodyl)) polyethylene glycol 3350 17 17 g PO ONCE #238 grams 05/27/24 06/03/24 gram/dose oral powder Previous Rx's ?Medication ?Instructions ?Recorded apixaban 5 mg tablet (Eliquis) 5 mg PO BID #60 tabs 12/12/16 diltiazem HCl 120 mg 120 mg PO QPM 30 days 12/12/16 capsule,extended release 24 hr metformin 500 mg tablet 1,000 mg (2 x 500 mg) PO BID 12/12/16 collagenase clostridium histo. 250 1 applic topical DAILY #90 grams 03/23/24 unit/gram topical ointment (Santyl) ketoconazole 2 % topical cream 1 applic topical DAILY #60 grams 04/06/24 bisacodyl 5 mg tablet,delayed 5 mg PO ONCE #4 tabs 05/27/24 release (Dulcolax (bisacodyl)) polyethylene glycol 3350 17 17 g PO ONCE #238 grams 05/27/24 gram/dose oral powder Allergies Allergy/AdvReac Type Severity Reaction Status Date / Time bupropion (From Wellbutrin) Allergy Severe unknown Verified 06/03/24 01:27 Penicillins Allergy rash Verified 06/03/24 01:27 gabapentin (From Neurontin) AdvReac nauseous Verified 06/03/24 01:27 varenicline (From Chantix) AdvReac crazy Verified 06/03/24 01:27 dreams General Stated Complaint: GenMedical MACK: 3 Review of Systems All systems reviewed & are unremarkable except as noted in HPI and below Exam Narrative Exam Narrative: 1.Const: Well-nourished, Well-developed, appearing stated age 2.Eyes: PERRL, no conjunctival injection, and symmetrical lids. 3.ENT: Atraumatic external nose and ears. Moist MM. Neck: Symmetric, trachea midline, No thyromegaly. 4.CVS: +S1/S2, No murmurs or gallops. Peripheral pulses 2+ and equal in all extremities. Brisk capillary refill in all extremities. 5.RESP: Airway clear, no obstructions. No abrasions or ecchymosis. Chest movement symmetric with respirations. Mild anterior chest wall tenderness. Atypical superior aspect of the sternum, but no focal tenderness over the sternal manubrial area. Mild tenderness over the lower aspect of the sternum particularly on the right sternal costal border. Trachea midline. No crepitus. No step offs. No paradoxical movements. Lungs demonstrate rhonchorous breath sounds throughout. Breath sound symmetric. No Sucking chest wounds. No focal tenderness over the right chest wall 6.GI: Soft, Nontender/Nondistended, No hepatosplenomegaly. No guarding or rebound. 7.MSK: Normocephalic/Atraumatic, Extremities w/o deformity or ttp No cyanosis or clubbing, Normal movement of all extremities 8.Skin: Warm, Dry. No rashes or lesions. 9.Neuro: tag stringer II-XII grossly intact. Sensation grossly intact, no focal neurologic deficits. 10.Psych: (AAO) x3. 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 About 6 weeks ago the patient fell and hit his left ribs, chest x-ray was performed outpatient and was found to be negative. Then 6 days ago the patient fell forward and landed with his sternum onto a wood pile and had to get pain then which has continued until now. He admits to pain with breathing, pain with movement and pain with palpation of the anterior chest wall. He denies fever or chills. He does have a chronic cough with yellow sputum which is unchanged. No hemoptysis. He denies any arm or back pain. He does take daily prescribed ibuprofen which has not been helping. Chronic baseline oxygen levels are between 90 to 93% and this has been unchanged. Exam demonstrates mild tenderness over the inferior aspect of the sternum particularly on the right-hand side, however he has a notable atypical sternal manubrial area. Patient states this is chronic and nontender. Lungs demonstrate rhonchi throughout. No paradoxical movement. Oxygen saturations stable. Differential includes rib fracture/sternal fracture, hematoma, hemothorax, pneumothorax, or other acute pathology. Will get CT scan of the chest for further assessment, give Toradol and Tylenol, monitor closely and reassess. Will apply Lidoderm patch. No evidence of tension pneumothorax at this time clinically. 4:54 AM Laboratory workup stable, platelets normal, hemoglobin normal. CT scan shows subacute fracture of the left 12th rib, age-indeterminate fracture of T12 vertebral body, minute left pleural effusion. Elevation of the left hemidiaphragm but no acute process otherwise no acute fracture. No sternal pathology. On reassessment patient is feeling much better after pain medication. Patient feels well for about going home. Diagnosis contusion of the chest wall, in conjunction with old fractures. Patient stable for discharge. Will give 3 [place] tablets for home use, Lidoderm patch, recommend Voltaren gel, recommend continued NSAID therapy and close follow-up with PCP. Discussed red flags for which to return. I have extensively reviewed the treatment plan and discharge instructions with the patient and their family. I have addressed all patient concerns at this time. The patient and family was made aware of what symptoms to monitor for that would warrant a return to the emergency department. Discussed the plan with the patient and family, they demonstrate verbal understanding and agreement with our assessment and plan at this time. The documentation in this chart was dictated using [employer] dictation software. Please excuse any dictation errors. FINDINGS: Lungs: Scattered areas of atelectasis and/or scarring in left lung base. Pleural spaces: No pneumothorax. Minute left pleural effusion. Heart: Heart top-normal in size. No pericardial effusion or pneumopericardium. Coronary arteries: No coronary artery calcification Esophagus: Normal esophagus. No pneumomediastinum. Lymph nodes: Unremarkable. No enlarged lymph nodes. Vasculature: No aortic aneurysm or dissection. Diaphragm: New elevation of left hemidiaphragm. Spleen: Spleen intact. Bones/joints: The spine demonstrates moderate degenerative changes at multiple levels. Ageindeterminate compression fracture of T12 vertebral body. Subacute fracture of left 12th rib. Multiple healed right rib fractures. Soft tissues: Unremarkable. IMPRESSION: 1. Age-indeterminate compression fracture of T12 vertebral body. Correlate clini vilma as to acuity. 2. Subacute fracture of left 12th rib. 3. New elevation of left hemidiaphragm. 4. Minute left pleural effusion. Thank you for allowing us to participate in the care of your patient. Dictated and Authenticated by: Stephan Maciel DO 06/03/2024 4:34 AM Eastern Time ([place] & [place]) Quality:SDOH Health Related Social Needs: No Data to Display PFSH All Active Problems (Updated 06/03/24 @ 04:53 by Shayne Sears DO) Compression fracture of body of thoracic vertebra (Acute) Fracture of rib (Acute) Chest wall contusion (Acute) Plantar verruca (Acute) Nail dystrophy (Acute) Onychomycosis (Acute) Neuropathic ulcer of left foot with fat layer exposed (Acute) Non-healing ulcer of left foot (Acute) Chronic ulcer of left foot (Acute) Pain in right foot (Acute) Abdominal pain, epigastric (Acute) COPD (chronic obstructive pulmonary disease) (Chronic) Diabetic skin ulcer (Acute) Family history of colon cancer (Acute) Screening for colon cancer (Acute) Persistent atrial fibrillation (Acute) GERD (gastroesophageal reflux disease) (Chronic) Smoker (Acute) Morbid obesity (Acute) Cardiomyopathy (Acute) Diabetes mellitus (Chronic) Chronic anticoagulation (Acute) Paroxysmal atrial fibrillation (Acute) Sleep apnea (Acute) does not use CPAP Diabetes mellitus type 2 in obese (Acute) Coronary artery disease (Acute) Nonischemic cardiomyopathy (Acute) Atrial fibrillation with rapid ventricular response (Acute) Medical History Cellulitis Hypothyroidism Hyperlipidemia Insomnia Peripheral neuropathy Knee pain, right Swelling, limb Knee pain, left Leg pain, left Thrush, oral Anticoagulated Acute low back pain Cellulitis of foot, left Pain in left foot Acute cough Dyspnea Callus of foot Hearing loss Hypomagnesemia Anxiety Knee pain, bilateral History of thrush Sun-damaged skin Boil Disorder of tendon of right hand Abdominal pain History of cardioversion x2, last September 2017. Granuloma annulare Social History Smoking/Tobacco Use Status: Current every day Tobacco Type: cigarettes Smoking packs per day: 1 Smoking cigarettes per day: 20.0 Years smoked: 50 Smoking pack- years: 50.00 Quit status: considering quitting Smoking risk assessment performed?: Yes Alcohol Intake: current Alcohol Intake frequency: a few times a week Alcohol type: beer Drug use: Never Substance use type: does not use Housing: house What type of physical activity do you participate in: none Do you feel safe in your relationship?: Yes PAWSS Have you Been Recently Intoxicated or Drunk Within the Last 30 days?: No Have you Ever Experienced Previous Episodes of Alcohol Withdrawal?: No Have you ever Experienced Withdrawal Seizures?: No Have you ever Experienced Delirium Tremens(DT)s?: No Have you ever undergone Alcohol Rehabilitation Treatment (i.e, inpt ot outpatient treatment programs)?: No Have you ever Experienced Blackouts?: No Have you ever Combined Alcohol with other Downers within the last 90 days?: No Have you ever Combined Alcohol with any other Substance of Abuse during the last 90 days?: No Positive Blood Alcohol level on Presentation? [PCS.BAL]: No Evidence of Increased Autonomic Activity (i.e. HR>120, tremor, sweating, agitation, nausea)?: No Result: 0
[2024-06-03] MEDS: Ketorolac 15 MG/ML VIAL IVP (01:47)
[2024-06-03] MEDS: ACETAMINOPHEN 1,000 MG/100 ML BTL 400 MG IVPB (01:47)
[2024-06-03] MEDS: Lidocaine 5% Patch 1 PATCH TP (01:48)
[2024-06-03 02:03] LABS: Abs Immature Grans 0.05 10^3/uL (0.0-0.06); Absolute Basophil Count 0.06 10^3/uL (0.0-0.2); Absolute Eosinophil Count 0.09 10^3/uL (0.0-0.7); Absolute Lymphocyte Count 2.35 10^3/uL (1.2-3.4); Absolute Monocyte Count 0.84 10^3/uL (0.1-0.8); Absolute Neutrophil Count 7.08 10^3/uL (1.2-6.7); Basophils % 0.6 %; Eosinophils % 0.9 %; HCT 41.8 % (40.0-50.0); HGB 13.7 g/dL (13.5-17.5); Immature Grans % 0.5 %; Lymphocytes % 22.4 %; MCH 29.3 pg (27.0-33.0); MCHC 32.8 % (32.0-36.0); MCV 90 fL (80-95); MPV 9.4 fL (8.0-11.0); Neutrophils % 67.6 %; Platelet Count 300 10^3/uL (130-400); RBC 4.67 10^6/uL (4.36-5.78); RDW 13.5 % (11.8-14.1); RDW-SD 44.2 fL; WBC 10.47 10^3/uL (4.4-10.8)
[2024-06-03 02:16] LABS: INR 1.3 (0.9-1.1); PTT Activated 32.8 sec (23.6-32.8); Prothrombin Time 12.4 sec (9.1-11.1)
[2024-06-03 02:18] LABS: ALT 11 U/L (16-63); AST 6 U/L (15-37); Albumin 2.7 g/dL (3.4-5.0); Alkaline Phosphatase 79 U/L (46-116); Anion Gap 12.5 mmol/L (3-11); BUN 15 mg/dL (7-18); Bilirubin, Total 0.38 mg/dL (0.2-1.0); CO2 24.5 mmol/L (21.0-32.0); CREATININE 1.2 mg/dL (0.70-1.30); Calcium 8.2 mg/dL (8.5-10.1); Chloride 102 mmol/L (98-107); Estimated GFR 67.11 (mL/min/1.73m2); Glucose 374 mg/dL (74-106); Potassium 3.8 mmol/L (3.5-5.1); Sodium 139 mmol/L (136-145); Total Protein 7.1 g/dL (6.4-8.2)
[2024-06-03] MEDS: Normal Saline - Diluent 50 ML VIAL IJ (02:38)
[2024-06-03] MEDS: Omnipaque 350 MG/ML 100 ML BTL IJ (02:39)
[2024-06-03] MEDS: MORPHine 4 MG/ML SYR IVP (04:28)
--- NOTE | 2024-06-03 04:35 | DI.VRAD_ITS ---
Addendum created by Stephan Maciel DO on 06/03/2024 4:50:50 AM EDT: Case discussed with Dr. Sears at approximately 4:40 a.m. on June 03 regarding ventral prominence of the sternum. Study images reviewed again during phone conversation. There is minimal anterior protuberance of the manubrium at sternal manubrial joint without findings for acute osseous or soft tissue injury. 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 Initial report created on 06/03/2024 4:34:38 AM EDT: PROCEDURE INFORMATION: Exam: CT Chest With Contrast; Diagnostic Exam date and time: 06/03/2024 2:33 AM Age: 63 years old Clinical indication: Injury or trauma; Blunt trauma (contusions or hematomas); Injury date: 05.28.24; Injury details: Fall on anterior ribs/sternum, eval for FX TECHNIQUE: Imaging protocol: Diagnostic computed tomography of the chest with contrast. 3D rendering (Not supervised by radiologist): MIP and/or 3D reconstructed images were created by the technologist. Contrast material: OMNI 350; Contrast volume: 70 ml; Contrast route: INTRAVENOUS (IV); COMPARISON: CR XR RIBS LT W PA LAT CHEST 04/13/2024 7:54 AM FINDINGS: Lungs: Scattered areas of atelectasis and/or scarring in left lung base. Pleural spaces: No pneumothorax. Minute left pleural effusion. Heart: Heart top-normal in size. No pericardial effusion or pneumopericardium. Coronary arteries: No coronary artery calcification Esophagus: Normal esophagus. No pneumomediastinum. Lymph nodes: Unremarkable. No enlarged lymph nodes. Vasculature: No aortic aneurysm or dissection. Diaphragm: New elevation of left hemidiaphragm. Spleen: Spleen intact. Bones/joints: The spine demonstrates moderate degenerative changes at multiple levels. Age-indeterminate compression fracture of T12 vertebral body. Subacute fracture of left 12th rib. Multiple healed right rib fractures. Soft tissues: Unremarkable. IMPRESSION: 1. Age-indeterminate compression fracture of T12 vertebral body. Correlate clinically as to acuity. 2. Subacute fracture of left 12th rib. 3. New elevation of left hemidiaphragm. 4. Minute left pleural effusion. Dictated and Authenticated by: Stephan Maciel MD. Ordering:AUSTIN Bella MD
== END 2024-06-03 05:02 | disposition home or self-care (01) ==
LOC: ER 04:53 → RED 05:03
PROVIDERS: Emergency Provider Student in an Organized Health Care Education/Training Program; PCP Family Medicine
DX: S20.213A Contusion of bilateral front wall of thorax, initial encounter (principal); S22.32XA Fracture of one rib, left side, initial encounter for closed fracture; S22.089A Unspecified fracture of T11-T12 vertebra, initial encounter for closed fracture; W01.198A Fall on same level from slipping, tripping and stumbling with subsequent striking against other object, initial encounter
CPT/HCPCS: 80053; 96365; 96366; 96375; 99285; 71260; 85025; 85610; 85730; 99284; J0131; J1885; J2270; J3490

== ENCOUNTER 2024-06-10 09:56 | Outpatient (REF) | payer MEDICARE, SELFPAY | END 2024-06-10 09:57 | disposition home or self-care (01) | LOC: NCHCN 09:56 | PROVIDERS: PCP Family Medicine; Visit Provider Family Medicine | DX: L97.502 Non-pressure chronic ulcer of other part of unspecified foot with fat layer exposed (principal) | CPT/HCPCS: 87070; 87205 ==

== ENCOUNTER → 2024-08-24 09:27 | Outpatient (BNVA) | payer MEDICARE, SELFPAY | PROVIDERS: PCP Family Medicine; Referring Provider Family Medicine; Visit Provider Podiatrist | DX: E11.621 Type 2 diabetes mellitus with foot ulcer (principal); L97.522 Non-pressure chronic ulcer of other part of left foot with fat layer exposed; B35.1 Tinea unguium; L60.3 Nail dystrophy; B07.0 Plantar wart | CPT/HCPCS: 97597 ==

== ENCOUNTER → 2024-12-09 11:18 | Outpatient (BNVA) | payer MEDICARE, SELFPAY | PROVIDERS: PCP Family Medicine; Referring Provider Family Medicine; Visit Provider Physical Therapy Assistant | DX: K21.9 Gastro-esophageal reflux disease without esophagitis (principal); Z12.11 Encounter for screening for malignant neoplasm of colon | CPT/HCPCS: 99214 ==

== ENCOUNTER 2024-12-16 07:53 | Outpatient (CLI) | payer MEDICARE, SELFPAY ==
--- NOTE | 2024-12-16 07:45 | RT.EKG_ITS ---
APPROVED REPORT Exam: Resting ECG Reason for Exam: afib Patient Location: O HR:133 bpm ECG Measurements Heart Rate 133 AXIS W[place] [id number] P [id number] QRSd 87 QRS 26 QT 281 T 220 QTc 418 Conclusion Atrial fibrillation...V-rate 98-169, irreg A-activity Low voltage, extremity leads...all extremity leads <0.5mV Diffuse ST-T abnormalities
== END 2024-12-16 07:54 | disposition home or self-care (01) ==
LOC: DI.CARD 07:53
PROVIDERS: PCP Family Medicine; Visit Provider Internal Medicine Cardiovascular Disease
DX: I25.10 Atherosclerotic heart disease of native coronary artery without angina pectoris (principal); I48.0 Paroxysmal atrial fibrillation
CPT/HCPCS: 93010

== ENCOUNTER → 2024-12-16 13:58 | Outpatient (BNVA) | payer MEDICARE, SELFPAY | PROVIDERS: PCP Family Medicine; Referring Provider Family Medicine; Visit Provider Internal Medicine Cardiovascular Disease | DX: Z01.810 Encounter for preprocedural cardiovascular examination (principal); I48.19 Other persistent atrial fibrillation; I42.8 Other cardiomyopathies | CPT/HCPCS: 93005; 99214 ==

== ENCOUNTER 2024-12-19 13:29 | Emergency (ER) | payer MEDICARE, SELFPAY ==
[2024-12-19] VITALS (25 sets, daily range): BP systolic 79–119; BP diastolic 48–70; PULSE 65–173; RESP 14–28; TEMP 36.3; O2SAT 94–100
--- NOTE | 2024-12-19 14:10 | ED.GENADUL_ITS ---
Discharge Plan Disposition Patient Disposition: Home Condition: Stable Discharge Details Clinical Impression: Atrial fibrillation with rapid ventricular response, Diabetes mellitus, Smoker, Diabetic skin ulcer, Pneumonia, Cellulitis, Hypomagnesemia, Acute UTI, Hypotension Primary Care Provider: Briana Dorsey V ED Provider: Roxanna Simpson Home Meds and New Rx's Prescriptions: New amoxicillin-pot clavulanate 875-125 mg tablet 1 tab PO BID Qty: 20 0RF Continued insulin asp prt-insulin aspart [Novolog Mix 70-30FlexPen U-100] 100 unit/mL (70-30) insulin pen 8 unit SC QPM Patient Comments: 12/21/18-6 units SQ Qam budesonide-formoterol [Symbicort] 160-4.5 mcg/actuation HFA aerosol inhaler 2 puff inhalation BID trazodone 50 mg tablet 50 mg PO QHS PRN triamcinolone acetonide 0.1 % cream 1 applic topical BID ketoconazole 2 % cream 1 applic topical DAILY Qty: 60 3RF Rx Instructions: Apply to toenails once daily magnesium oxide 500 mg tablet 500 mg PO BID metoprolol succinate 50 mg tablet extended release 24 hr 50 mg PO QPM insulin glargine [Lantus Solostar U-100 Insulin] 100 unit/mL (3 mL) insulin pen 22 unit subcut BID Patient Comments: 04/14/23 pt states he takes 28 units at night RH bisacodyl [Dulcolax (bisacodyl)] 5 mg tablet,delayed release (DR/EC) 5 mg PO ONCE Qty: 4 0RF Rx Instructions: Take per colonoscopy instructions provided by ordering providers office polyethylene glycol 3350 17 gram/dose powder 17 g PO ONCE Qty: 238 0RF Rx Instructions: Take per colonoscopy instructions provided by ordering providers office levothyroxine 25 MCG tablet 50 mcg PO DAILY nitroglycerin 0.4 mg tablet, sublingual 0.4 mg Buccal ONCE PRN ibuprofen 800 mg tablet 800 mg PO BID PRN albuterol sulfate [ProAir HFA] 90 mcg/actuation HFA aerosol inhaler 2 puff inhalation Q6H PRN indomethacin 50 mg capsule 50 mg PO TID PRN Rx Instructions: administer with food or milk cholecalciferol (vitamin D3) 25 mcg (1,000 unit) capsule 25 mcg PO DAILY loratadine 10 mg tablet 10 mg PO DAILY furosemide 20 mg tablet 20 mg PO DAILY atorvastatin [Lipitor] 20 mg tablet 20 mg PO DAILY Qty: 60 (DME) pva-gentian braulio-methyl blue 4 X 4 bandage See Rx Instructions .Route Rx Instructions: As directed metoprolol succinate 50 mg tablet extended release 24 hr 100 mg PO DAILY Qty: 4 Rx Instructions: 100mg QAM; 50MG QPM metformin 500 MG tablet 1,000 mg PO BID 0RF diltiazem HCl 120 MG capsule,extended release 24hr 120 mg PO QPM 30 Days 1RF Eliquis 5 MG tablet 5 mg PO BID Qty: 60 1RF Discontinued lisinopril 2.5 mg tablet 5 mg PO DAILY Discharge Instructions Instructions: Type 2 diabetes, Pneumonia, Adult (DC), Amoxicillin and Clavulanate Additional Instructions: As we discussed, you have several acute on chronic issues occurring currently. I believe that a large amount of this is associated with your uncontrolled diabetes. It does look you already making steps in the right direction I encourage you to continue with this. Please take your medications as prescribed. Please stop the large amount of ice cream and take your insulin as previously directed. The worsening of your diabetes may be contributing to some of your weight loss which may also then be making it time to adjust of your medications. Please stop the lisinopril. I would like for you to continue checking your blood pressure and continue to monitor this. Please take your other medications as previously directed. Elevated sugars can put you at increased risk for infection and I believe that you have recurrence of your cellulitis, possibly a urinary tract infection as well as pneumonia. As we discussed, I am concerned that your pneumonia may be from you coughing a lot when you are trying to drink water. This may suggest that you need a swallow study. Please consider thickening her liquids and drinking things that did not induce this type of reaction. I am placing you on Augmentin. Please take the antibiotic as prescribed, even if symptoms improve please take the entire course. While penicillin is listed as a potential allergy, after discussing with you we will use this medication and should cover for all of the infections that you are displaying at this point. Your magnesium was low today, this was replenished here, encourage you to continue with magnesium rich foods. Please follow-up with primary care as soon as possible, call tomorrow to schedule appointment. If you develop any new or worsening symptoms, please seek care urgently once again. Referrals: Briana Dorsey MD [Primary Care Provider] - [facility] General Date/Time Provider Initiated Documentation: 12/19/24 13:57 . Limitations to Documentation: no limitations . Information obtained by: patient, family (), RN notes reviewed and old records reviewed . History of Present Illness 64 year old M presents to the emergency department with the chief complaint of general unwell, hypotension, abdominal upset, frequent urination, described as moderate and similar to prior episodes, Quality is described as other (pain LLE), Related Data Home Medications ?Medication ?Instructions ?Recorded ?Confirmed levothyroxine 25 mcg tablet 50 mcg PO DAILY 05/29/15 12/19/24 apixaban 5 mg tablet (Eliquis) 5 mg PO BID #60 tabs 12/12/16 12/19/24 diltiazem HCl 120 mg 120 mg PO QPM 30 days 12/12/16 12/19/24 capsule,extended release 24 hr metformin 500 mg tablet 1,000 mg (2 x 500 mg) PO BID 12/12/16 12/19/24 insulin aspar prot-insulin aspart 8 unit subcut QPM 03/22/19 12/19/24 100 unit/mL (70-30) subcutaneous pen (Novolog Mix 70-30FlexPen U-100) magnesium oxide 500 mg PO BID 03/22/19 12/19/24 metoprolol succinate 50 mg 50 mg PO QPM 03/22/19 12/19/24 tablet,extended release 24 hr nitroglycerin 0.4 mg sublingual 0.4 mg buccal ONCE PRN 03/22/19 12/19/24 tablet albuterol sulfate 90 mcg/actuation 2 puff inhalation Q6H PRN 04/03/21 12/19/24 aerosol inhaler (ProAir HFA) ibuprofen 800 mg tablet 800 mg PO BID PRN 04/03/21 12/19/24 indomethacin 50 mg capsule 50 mg PO TID PRN 03/14/22 12/19/24 cholecalciferol (vitamin D3) 25 25 mcg PO DAILY 03/26/22 12/19/24 mcg (1,000 unit) capsule furosemide 20 mg tablet 20 mg PO DAILY 03/26/22 12/19/24 loratadine 10 mg tablet 10 mg PO DAILY 03/26/22 12/19/24 insulin glargine 100 unit/mL (3 22 unit subcut BID 04/14/23 12/16/24 mL) subcutaneous pen (Lantus Solostar U-100 Insulin) atorvastatin 20 mg tablet (Lipitor) 20 mg PO DAILY #60 tab-caps 01/16/24 12/19/24 budesonide-formoterol HFA 160 2 puff inhalation BID 03/17/24 12/19/24 mcg-4.5 mcg/actuation aerosol inhaler (Symbicort) trazodone 50 mg tablet 50 mg PO QHS PRN 03/17/24 12/19/24 triamcinolone acetonide 0.1 % 1 applic topical BID 03/17/24 12/19/24 topical cream ketoconazole 2 % topical cream 1 applic topical DAILY #60 grams 04/06/24 12/19/24 polyvinyl alcohol-gentian 08/31/24 12/19/24 braulio-methylene blue 4 X 4 bandage bisacodyl 5 mg tablet,delayed 5 mg PO ONCE #4 tabs 12/09/24 12/19/24 release (Dulcolax (bisacodyl)) polyethylene glycol 3350 17 17 g PO ONCE #238 grams 12/09/24 12/19/24 gram/dose oral powder metoprolol succinate 50 mg 100 mg PO DAILY #4 tab-caps 12/16/24 12/19/24 tablet,extended release 24 hr amoxicillin 875 mg-potassium 1 tab PO BID #20 tabs 12/19/24 clavulanate 125 mg tablet Previous Rx's ?Medication ?Instructions ?Recorded apixaban 5 mg tablet (Eliquis) 5 mg PO BID #60 tabs 12/12/16 diltiazem HCl 120 mg 120 mg PO QPM 30 days 12/12/16 capsule,extended release 24 hr metformin 500 mg tablet 1,000 mg (2 x 500 mg) PO BID 12/12/16 ketoconazole 2 % topical cream 1 applic topical DAILY #60 grams 04/06/24 bisacodyl 5 mg tablet,delayed 5 mg PO ONCE #4 tabs 12/09/24 release (Dulcolax (bisacodyl)) polyethylene glycol 3350 17 17 g PO ONCE #238 grams 12/09/24 gram/dose oral powder amoxicillin 875 mg-potassium 1 tab PO BID #20 tabs 12/19/24 clavulanate 125 mg tablet Allergies Allergy/AdvReac Type Severity Reaction Status Date / Time bupropion (From Wellbutrin) Allergy Severe unknown Verified 12/19/24 13:37 Penicillins Allergy rash Verified 12/19/24 13:37 gabapentin (From Neurontin) AdvReac nauseous Verified 12/19/24 13:37 varenicline (From Chantix) AdvReac crazy Verified 12/19/24 13:37 dreams General Stated Complaint: GenMedical MACK: 3 Review of Systems Constitutional Constitutional: Reports as per HPI, Denies chills, Reports daytime sleepiness, Denies fever(s), Denies headache(s), Reports lethargy, Reports malaise, Reports poor appetite and Reports weight loss Eyes Eyes: Denies change in vision ENT Ears, Nose, Mouth, and Throat: Reports dysphagia (describes coughing on water, otherwise normal), Denies headache(s) and Denies odynophagia Cardiovascular Cardiovascular: Reports as per HPI, Denies chest pain, Reports irregular heart rhythm, Reports lightheadedness and Denies dyspnea Respiratory Respiratory: Reports as per HPI, Denies chest congestion, Reports cough (chronic, associates with smoking), Denies pain on inspiration, Denies pain with cough and Denies dyspnea Gastrointestinal Gastrointestinal: Reports as per HPI, Denies abdominal pain, Denies melena, Reports change in bowel habits, Reports dysphagia (describes coughing on water, otherwise normal), Denies diarrhea, Reports nausea, Denies odynophagia and Denies vomiting Genitourinary Genitourinary: Reports as per HPI, Reports urinary frequency, Denies urinary incontinence and Denies urinary urgency Musculoskeletal Musculoskeletal: Reports as per HPI and Denies back pain Integumentary/Breasts Skin/Breast: Reports as per HPI and Denies rash Neurologic Neurologic: Reports as per HPI and Denies headache(s) Exam Const General: cooperative, comfortable, no acute distress, well developed and ill appearing chronically Nutritional Appearance: average body habitus and well nourished Orientation: alert, awake and oriented x3 HENMT Head: normal to inspection Ears: hearing grossly normal bilaterally Mouth: No moist mucous membranes abnormal (dry) Chest Chest: normal inspection of the chest, normal palpation of entire chest wall and no crepitus Resp Effort & Inspection: normal respiratory effort, able to speak in complete sentences and no respiratory distress Auscultation: clear to auscultation bilaterally, no rales, no rhonchi and no wheezes Cardio Rate: tachycardic Rhythm: abnormal rhythm irregularly irregular Heart Sounds: S1 normal and S2 normal GI Inspection: normal to inspection, no edema and non-distended Palpation: soft, no hepatosplenomegaly, not firm, no guarding, not rigid and nontender Auscultation: normal bowel sounds Back/Spine/Pelvis Back: no CVA tenderness Thoracic/Lumbar Spine: thoracic and lumbar spine normal to inspection Skin General skin exam: erythema (medial aspect left anterior tibia) Lesions: lesion noted (chronic wound plantar side left foot, no drainage, erythema, swelling) Trauma: no lacerations or abrasions Neuro General: patient alert, patient awake and patient oriented x3 Cognition: normal cognition Speech: speech normal Gait: normal gait Extrem General: normal to inspection, capillary refill normal, no pedal edema, no calf tenderness and normal gait Course Vital Signs Vital signs: Vital Signs Temperature 36.3 C L 12/19/24 13:34 Pulse 75 12/19/24 13:34 Respiratory Rate 18 12/19/24 13:34 Blood Pressure 119/63 12/19/24 13:34 Pulse Oximetry 98 12/19/24 13:34 Temperature 36.3 C L 12/19/24 13:41 Pulse 75 12/19/24 13:41 Respiratory Rate 18 12/19/24 13:41 Blood Pressure 119/63 12/19/24 13:41 Pulse Oximetry 98 12/19/24 13:41 Medical Decision Making Patient is a pleasant 64-year-old male, accompanied by his , past medical history significant for GERD, neuropathy, nonhealing ulcer of the left foot, COPD, smoker, obesity cardiac cardiomyopathy, diabetes, chronic anticoagulation for atrial fibrillation, sleep apnea, CAD, presenting for several complaints, feeling unwell. He reports that he has had pain and chronic wounds in his mouth for the past few months they have waxed and waned. He has lost 35 pounds since August which has been nonintentional. Has had chronic abdominal discomfort as well as nausea but no vomiting. States that he struggled with diarrhea and or constipation for the last several months which is new for him. He denies any chest pain. States that he has had increased shortness of breath which he contributes to his smoking. Had been doing well with his wound in the left foot but states that it has been becoming more erythematous over the past 2 days and spreading up the lower extremity. also reports that he was supposed to have an endoscopy and a colonoscopy to evaluate some of these chronic issues. However, he was declined secondary to hypotension at recent cardiology appointment for preop evaluation. When he was seen on the of last month, his blood pressure was 72/44. Per patient 's report, no change to medications were made. Blood pressure is much improved today. Patient has been on the same medications for his elevated blood pressure for several years. Patient states that he has had some lightheadedness which could be attributed to this. On exam, patient appears chronically unwell. Does appear like he is lost significant amount of weight. Very dry skin. He has 2+ distal pulses. Irregularly irregular on auscultation. Lungs are clear in all watson. No abdominal tenderness or masses elicited. He does have erythema of the left lower extremity, this seems to be more in the calf especially anteriorly rather than at the area of the foot. The patient's chronic comorbidities, chronic smoking, I am concerned for uncontrolled diabetes, potential cancer given the nonpurposeful weight loss and general malaise. Patient has been chronically tachycardic, in atrial fibrillation as well as hypotensive for quite some time on chart review. I do not believe that this is new but may be exacerbated by the weight loss, regardless of the underlying cause. Patient is currently on metoprolol, diltiazem as well as lisinopril and furosemide. His reports that his swelling his lower extremities have been stable. At this point, I do not see evidence to suggest respiratory compromise. Were concerned again with mismanaged diabetes potential cancerous etiology, cellulitis. Pain does not appear frankly septic, cellulitis does not appear consistent with necrotizing fasciitis, abscess or deep space infection. Out of abundance of caution I will obtain an x-ray to evaluate for any potential osteomyelitis. This does not appear to be driven by the diabetic foot wound but rather isolated to the calf and anterior tibia. Labs reviewed. Patient does have slight leukocytosis with a white count of 1.3. His magnesium is low at 1.3 will Gal this orally. His lactate was elevated as is his glucose. On further discussion regarding his diabetes, it sounds like this profoundly mismanaged. Patient has not been wanting to eat or drink much so has not been using his fast acting insulin. On the other hand, when he does eat he eats large volumes of ice cream. He has been using his other insulin however. ESR and CRP are elevated which may be associated with his acute infection. Patient's does seem very aware of his chronic comorbidities and how to care for his diabetes and is actually been making some strides to help rectify this chronic mismanagement with more involvement with his medications as well as changing of his food options. Patient troponin within the normal limits, x 2, I do not feel that third is required at this point. GFR within normal limits. Do not see evidence of acute kidney injury. With his carbon dioxide being normal and clinical exam, I do not believe the patient is in DKA. Despite the glucose of 400, believe this is more chronic in nature and needs better long-term management. Imaging was reviewed by radiologist. X-ray of the patient's lower extremity showed soft tissue swelling but no acute bony abnormality. Old tibial fracture and hardware in place. The CT scan was reviewed by outside radiologist who noted mild patchy micronodular and tree-in-bud opacity of the right upper lobe acute infectious or small volume aspiration could have this appearance. I did discuss this with the patient and they did report that he has had aspirations historically. Will cover for this with antimicrobials. They also note abnormality with the thyroid but study did not show this completely. Bladder w as also thickened on CT scan. They advised could be concerning for acute cystitis or underdistention. Lymph nodes in the left pelvic sidewall which may be associated with the previously described cellulitis. I discussed these findings with the patient. We also discussed disposition at length. Patient lives quite close. His is very attentive and helpful. If they are able to return with any new or worsening symptoms. Despite the patient being tachycardic and hypotensive, believe that this is chronic in nature. He has not had any symptoms of this while here. No dizziness or lightheadedness. He has not had any chest pain or increased shortness of breath. Patient would greatly prefer to be able to go home and I feel that is the seem to be chronic mismanaged etiologies that this would be appropriate. We will be stopping the lisinopril to help with the hypotension. I advise close follow-up with primary care discuss this further. In regard to infections, we will cover with Augmentin for potential aspiration pneumonia, cellulitis as well as possible UTI. Patient did have allergy to penicillin listed but states that he has had this since then and has not had any type of rash and believes that he is not actually allergic to this medication. Feel that Augmentin is an appropriate choice at this point. He is hydrating orally, eating and drinking well. We did discuss using a thickener and if he continues to have difficulty with swallowing water, may benefit from a swallow study. will call primary care tomorrow to schedule close follow-up. Very strict return precautions were discussed. We also reminded him of diabetic management and he is in agreement with lifestyle changes required to see improvements in this regard. Again, at this point while the patient does have concerning findings, I believe that most of these are chronic in nature and patient does not require hospitalization for septicemia or other emergent pathology at this time and will return with any worsening symptoms. All their questions and concerns were addressed in agreement this plan. This documentation was generated using [employer] dictation system, please disregard any oddities of phrase or misspellings. Quality:SDOH Health Related Social Needs: No Data to Display PFSH All Active Problems (Updated 12/19/24 @ 17:52 by BALTAZAR Pereyra) Hypotension (Acute) Acute UTI (Acute) Hypomagnesemia (Acute) Cellulitis (Acute) Pneumonia (Acute) Preoperative cardiovascular examination (Acute) Plantar verruca (Acute) Nail dystrophy (Acute) Onychomycosis (Acute) Neuropathic ulcer of left foot with fat layer exposed (Acute) Non-healing ulcer of left foot (Acute) Chronic ulcer of left foot (Acute) Pain in right foot (Acute) Abdominal pain, epigastric (Acute) COPD (chronic obstructive pulmonary disease) (Chronic) Diabetic skin ulcer (Acute) Family history of colon cancer (Acute) Screening for colon cancer (Acute) Persistent atrial fibrillation (Acute) GERD (gastroesophageal reflux disease) (Chronic) Smoker (Acute) Morbid obesity (Acute) Cardiomyopathy (Acute) Diabetes mellitus (Chronic) Chronic anticoagulation (Acute) Paroxysmal atrial fibrillation (Acute) Sleep apnea (Acute) does not use CPAP Diabetes mellitus type 2 in obese (Acute) Coronary artery disease (Acute) Nonischemic cardiomyopathy (Acute) Atrial fibrillation with rapid ventricular response (Acute) Medical History Cellulitis Hypothyroidism Hyperlipidemia Insomnia Peripheral neuropathy Knee pain, right Swelling, limb Knee pain, left Leg pain, left Thrush, oral Anticoagulated Acute low back pain Cellulitis of foot, left Pain in left foot Acute cough Dyspnea Callus of foot Hearing loss Hypomagnesemia Anxiety Knee pain, bilateral History of thrush Sun-damaged skin Boil Disorder of tendon of right hand Abdominal pain History of cardioversion x2, last September 2017. Granuloma annulare Social History Smoking/Tobacco Use Status: Current every day Tobacco Type: cigarettes Smoking packs per day: 1 Smoking cigarettes per day: 20.0 Years smoked: 50 Smoking pack- years: 50.00 Quit status: considering quitting Smoking risk assessment performed?: Yes Alcohol Intake: current Alcohol Intake frequency: holidays/special occasions only Alcohol type: beer Drug use: Never Substance use type: does not use Housing: house What type of physical activity do you participate in: none Do you feel safe in your relationship?: Yes
--- NOTE | 2024-12-19 14:45 | RT.EKG_ITS ---
APPROVED REPORT Exam: Resting ECG Reason for Exam: SOB Patient Location: E HR:124 bpm ECG Measurements Heart Rate 124 AXIS IN [id number] P [id number] QRSd 86 QRS 52 QT 315 T 44 QTc 454 Conclusion Atrial fibrillation...V-rate 85-149, irreg A-activity Low voltage, extremity leads...all extremity leads <0.5mV No STEMI
--- NOTE | 2024-12-19 14:46 | DI.CT_ITS ---
Exam(s) CT CHEST/ABD/PEL W EXAM: CT CHEST/ABD/PEL W CLINICAL HISTORY: abdominal pain, weight loss, SOB. TECHNIQUE: Imaging Protocol: Axial computed tomography images with coronal and sagittal reformatted images were created and reviewed CONTRAST MATERIAL: Intravenous: Omnipaque 350 Contrast volume:100 ml Oral: None COMPARISON: CT CT CHEST W from 06/03/2024 FINDINGS: CHEST: LUNGS: There is mild patchy tree in bud infiltrate in the anterior segment of the right upper lobe. Remainder of the right lung is clear. In the left lung there is a small 3 millimeter nodule peripher ally in the left upper lobe. There is also some infiltrate in the lingular segment of the left lung which appears slightly spiculated on the sagittal images and requires follow-up, this measuring appro ximately 1.5 x 1.3 cm. MEDIASTINUM: There is no hilar nor mediastinal adenopathy. Foot thyroid gland is abnormal. There are nodules in both lobes. Follow-up ultrasound recommended. CARDIAC: Heart size is normal. There is no pericardial effusion.Diameter of the ascending thoracic a yosvany is prominent, measuring 4 cm. No evidence of dissection. OSSEOUS: Healed right-sided rib fractures. No acute rib fractures. No lytic osseous lesions.Chronic fracture deformity T11 and T12. No acute thoracic vertebral fractures.. ABDOMEN: There is no ascites. LIVER: There are no focal hepatic lesions nor dilatation of intrahepatic ducts. GALLBLADDER/BILIARY: No obvious gallbladder pathology. CBD is not dilated. PANCREAS: There are multiple calcifications in the pancreatic head and uncinate process consistent wi th chronic pancreatitis. The pancreatic duct is not dilated. There is no distinct pancreatic mass. There is no prominent retroperitoneal adenopathy. SPLEEN: Spleen is not enlarged. There are no intrasplenic lesions. Splenic and portal veins are mckinney nt. ADRENALS: There are no significant adrenal masses. KIDNEYS: There is a E 2.5 x 2.2 cm benign cyst in the mid-inferior aspect of the right kidney. There is an exophytic benign cyst off the medial cortex of the opposite-left kidney, similar size, previou sly present. These benign cysts do not require further imaging workup. There are no solid renal mas ses. No renal calculi. No hydronephrosis. No hydroureter. ABDOMINAL AORTA: Abdominal aorta is calcified but not enlarged. There is mild aneurysmal dilatation of the distal left common iliac artery which exhibits diameter 1.6 cm. LYMPH NODES: There is no retroperitoneal nor paraaortic adenopathy. ABDOMINAL WALL: No evidence of significant anterior abdominal wall nor inguinal hernia. GI: There is no evidence of bowel obstruction.There is streaking posterior to the descending-left col on without evidence of obvious diverticuli nor distinct mass. PELVIS: LYMPH NODES: There is no adenopathy around the aortic bifurcation. However, there are few slightly p rominent lymph nodes in the left iliac chain. No significant inguinal adenopathy. GI: The appendix is not seen; may be surgically absent. There is no evidence of appendicitis. URINARY BLADDER: Appearance of the urinary bladder is abnormal. The wall is uniformly thickened and there is some mucosal enhancement on the left side. Suspect cystitis. There are no radiopaque calcu li seen in the bladder lumen and no distinct focal masses. REPRODUCTIVE: Prostate size normal. Seminal vesicles unremarkable. OSSEOUS: No significant osseous lesions. IMPRESSION: 1. There is tree in bud mild patchy infiltrate in the anterior segment of the right upper lobe. Ther e is also some infiltrate in the lingular segment of the left lung as described above which appears s lightly spiculated on the reconstructed sagittal images. Close follow-up of this findings recommende d including repeat CT scan in 3 months. There is also a small 3 millimeter nodule in the lateral asp ect of the left upper lobe. No pleural effusions nor intrathoracic adenopathy. 2. Ascending thoracic aorta is dilated measuring 4 cm. There is no evidence of dissection. 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 3. Multiple pancreatic head calcifications which are consistent with chronic pancreatitis. There is no CT evidence of acute pancreatitis nor dilatation pancreatic duct. No obvious pancreatic mass. 4. Abnormal appearance of the urinary bladder which is diffusely thickened and indistinct and exhibit s some mucosal enhancement on the left side. Consistent with cystitis. This requires follow-up 5. There are mildly prominent lymph nodes in the left iliac chain 6. there is some fat streaking in proximity to the descending left colon. Slightly more so than prev ious. There is, however, no obvious diverticulosis. Also does not have the appearance of epiploic a ppendagitis. First read by Kristopher MCKN[facility] RADIATION DOSE DELIVERED: 1,262.79mGy.cm Total DLP DATA REPOSITORY: All CT scans at this facility are submitted to the National Radiology Data Registry (NRDR) Dose Index Registry (DIR) with the [employer] ([employer]). RADIATION OPTIMIZATION: All CT scans at this facility use at least one of these dose optimization te chniques: automated exposure control; mA and/or kV adjustment per patient size (includes targeted exa ms where dose is matched to clinical indication); or iterative reconstruction.
[2024-12-19 15:00] LABS: Abs Immature Grans 0.06 10^3/uL (0.0-0.06); Absolute Basophil Count 0.06 10^3/uL (0.0-0.2); Absolute Eosinophil Count 0.04 10^3/uL (0.0-0.7); Absolute Lymphocyte Count 1.73 10^3/uL (1.2-3.4); Basophils % 0.4 %; Eosinophils % 0.3 %; HCT 43.7 % (40.0-50.0); HGB 14.3 g/dL (13.5-17.5); Immature Grans % 0.4 %; Lymphocytes % 12.5 %; MCH 29.7 pg (27.0-33.0); MCHC 32.7 % (32.0-36.0); MCV 91 fL (80-95); MPV 8.7 fL (8.0-11.0); Monocytes % 5.7 %; Neutrophils % 80.7 %; Platelet Count 319 10^3/uL (130-400); RBC 4.82 10^6/uL (4.36-5.78); RDW 13.2 % (11.8-14.1); RDW-SD 43.5 fL
[2024-12-19 15:02] LABS: ESR 42 mm/hr (0-20)
[2024-12-19 15:05] LABS: Absolute Monocyte Count 0.79 10^3/uL (0.1-0.8); Absolute Neutrophil Count 11.14 10^3/uL (1.2-6.7)
[2024-12-19 15:18] LABS: ALT 14 U/L (16-63); AST 10 U/L (15-37); Albumin 2.6 g/dL (3.4-5.0); Alkaline Phosphatase 93 U/L (46-116); Anion Gap 11.6 mmol/L (3-11); BUN 23 mg/dL (7-18); Bilirubin, Total 0.52 mg/dL (0.2-1.0); CO2 24.4 mmol/L (21.0-32.0); CREATININE 1.3 mg/dL (0.70-1.30); Calcium 8.7 mg/dL (8.5-10.1); Chloride 98 mmol/L (98-107); Estimated GFR 60.59 (mL/min/1.73m2); Glucose 402 mg/dL (74-106); Lipase 36 U/L (<78); Magnesium 1.2 mg/dL (1.8-2.4); Sodium 134 mmol/L (136-145); Troponin I 8 ng/L (<or=76)
[2024-12-19] MEDS: Cephalexin 500 MG CAP PO (15:19)
[2024-12-19 15:29] LABS: C-Reactive Protein 24.79 mg/dL (<or=0.5)
--- NOTE | 2024-12-19 15:30 | W.EDPROG ---
Date of service: 12/19/24 Time of Service: 15:30 Medical Decision Making Quality:SDOH Health Related Social Needs: No Data to Display Discharge Plan Discharge Details Chief Complaint: GenMedical Primary Care Provider: Briana Dorsey V ED Provider: Rxoanna Simpson Home Meds and New Rx's Prescriptions: No Action insulin asp prt-insulin aspart [Novolog Mix 70-30FlexPen U-100] 100 unit/mL (70-30) insulin pen 8 unit SC QPM Patient Comments: 12/21/18-6 units SQ Qam budesonide-formoterol [Symbicort] 160-4.5 mcg/actuation HFA aerosol inhaler 2 puff inhalation BID trazodone 50 mg tablet 50 mg PO QHS PRN triamcinolone acetonide 0.1 % cream 1 applic topical BID ketoconazole 2 % cream 1 applic topical DAILY Qty: 60 3RF Rx Instructions: Apply to toenails once daily magnesium oxide 500 mg tablet 500 mg PO BID metoprolol succinate 50 mg tablet extended release 24 hr 50 mg PO QPM insulin glargine [Lantus Solostar U-100 Insulin] 100 unit/mL (3 mL) insulin pen 22 unit subcut BID Patient Comments: 04/14/23 pt states he takes 28 units at night RH bisacodyl [Dulcolax (bisacodyl)] 5 mg tablet,delayed release (DR/EC) 5 mg PO ONCE Qty: 4 0RF Rx Instructions: Take per colonoscopy instructions provided by ordering providers office polyethylene glycol 3350 17 gram/dose powder 17 g PO ONCE Qty: 238 0RF Rx Instructions: Take per colonoscopy instructions provided by ordering providers office levothyroxine 25 MCG tablet 50 mcg PO DAILY nitroglycerin 0.4 mg tablet, sublingual 0.4 mg Buccal ONCE PRN ibuprofen 800 mg tablet 800 mg PO BID PRN albuterol sulfate [ProAir HFA] 90 mcg/actuation HFA aerosol inhaler 2 puff inhalation Q6H PRN lisinopril 2.5 mg tablet 5 mg PO DAILY indomethacin 50 mg capsule 50 mg PO TID PRN Rx Instructions: administer with food or milk cholecalciferol (vitamin D3) 25 mcg (1,000 unit) capsule 25 mcg PO DAILY loratadine 10 mg tablet 10 mg PO DAILY furosemide 20 mg tablet 20 mg PO DAILY atorvastatin [Lipitor] 20 mg tablet 20 mg PO DAILY Qty: 60 (DME) pva-gentian braulio-methyl blue 4 X 4 bandage See Rx Instructions .Route Rx Instructions: As directed metoprolol succinate 50 mg tablet extended release 24 hr 100 mg PO DAILY Qty: 4 Rx Instructions: 100mg QAM; 50MG QPM metformin 500 MG tablet 1,000 mg PO BID 0RF diltiazem HCl 120 MG capsule,extended release 24hr 120 mg PO QPM 30 Days 1RF Eliquis 5 MG tablet 5 mg PO BID Qty: 60 1RF POCUS Exam (ED) Limited Cardiac Exam DATE OF EXAM: 12/19/24 TIME OF EXAM: 15:30 PROVIDER THAT PERFORMED THE STUDY: Melo Banegas IS THIS A REPEAT EXAM DURING THIS ENCOUNTER: no REASON FOR EXAM: Other indication: Malaise VISUALIZED STRUCTURES: Four Chambers, Left ventricle and LVOT VIEW OBTAINED: Apical 4-Chamber, Parasternal long-axis and Subxiphoid PERTINENT FINDINGS/IMPRESSION: No pericardial effusion and No RV dilation DIFFERENTIAL DIAGNOSES: Aortic outflow track less than 4 cm, RV less than LV, no significant pericardial effusion. Squeeze appeared to be good though difficult to assess secondary to atrial fibrillation and body habitus. Exam complete
[2024-12-19 15:35] LABS: Hemoglobin A1C > 13.0 % (<5.7)
[2024-12-19 15:39] LABS: Lactate 2.3 mmol/L (<or=2.0)
--- NOTE | 2024-12-19 15:45 | DI.RAD_ITS ---
Exam(s) XR TIB/FIB LT EXAM: XR TIB/FIB LT CLINICAL HISTORY: cellulitis. TECHNIQUE: 2D digital imaging was performed. Two views. COMPARISON: CR LEFT TIB/FIB from 03/25/2018 FINDINGS: BONES: No acute fracture is present. Fixation plate again noted in mid to distal tibia. No bony simeon tructive lesion is seen. Joints: Mild degenerative changes of the ankle and knee. SOFT TISSUE: Soft tissue swelling. Chronic in soft tissue calcifications seen anteriorly, unchanged. IMPRESSION: Soft tissue swelling. No acute bony abnormality. Old tibial fracture with hardware in place. DATA REPOSITORY: RADIATION DOSE DELIVERED:
[2024-12-19] MEDS: Omnipaque 350 MG/ML 100 ML BTL IJ (16:02)
[2024-12-19] MEDS: Normal Saline - Diluent 50 ML VIAL IJ (16:06)
[2024-12-19] MEDS: Lactated Ringers 1,000 ML 1000 ML IV (16:18)
[2024-12-19 16:19] LABS: Troponin I 8 ng/L (<or=76)
--- NOTE | 2024-12-19 17:00 | DI.VRAD_ITS ---
PROCEDURE INFORMATION: Exam: CT Chest With Contrast; Diagnostic Exam date and time: 12/19/2024 3:56 PM Age: 64 years old Clinical indication: Other: Abdominal pain, weight loss, SOB; Other: Concern for CA TECHNIQUE: Imaging protocol: Diagnostic computed tomography of the chest with contrast. 3D rendering (Not supervised by radiologist): MIP and/or 3D reconstructed images were created by the technologist. Contrast material: OMNII 350; Contrast volume: 100 ml; Contrast route: INTRAVENOUS (IV); COMPARISON: CT CHEST W 06/03/2024 2:33 AM FINDINGS: Thyroid: Thyroid gland only partially included in the field of view but heterogeneous and mildly enlarged through its visualized portion with scattered heterogeneous hypoattenuating indeterminate nodular thyroid lesions, the largest of which measures 1.8 cm on the right on image 12 of series 10, nonspecific but also seen on the comparison exam from June 03, 2024. Lungs: Mild patchy micronodular and tree-in-bud opacity in the right upper lobe. No region of pipo pulmonary consolidation. Pleural spaces: No pleural effusion or pneumothorax. Heart: Normal-sized heart. Trace pericardial fluid. Lymph nodes: No pathologically enlarged mediastinal or hilar lymph nodes. No pathologically enlarged mediastinal or hilar lymph nodes. Vasculature: No thoracic aortic aneurysm or dissection. No pulmonary embolism identified. Bones/joints: Focal sclerosis along the anterolateral aspect of the right 3rd-6th ribs in keeping with incompletely healed rib fractures, apparently acute at the time of the comparison exam from June 03, 2024. Old fractures through the posterolateral aspect of the right 7th, 8th, and 9th ribs. Old fracture through the anterolateral aspect of the left 3rd rib. Focal sclerosis along the anterolateral aspect of the left 4th-6th ribs keeping with incompletely healed rib fractures, apparently acute at the time of the June 03, 2024 exam. Old superior and inferior endplate compression fracture deformities at T12 moderate loss of central vertebral height and partial fusion across the T11-T12 disc space. No acute fracture seen. Anterior osteophytes at several lower thoracic levels. Soft tissues: No gross soft tissue mass or fluid collection seen in the chest wall. IMPRESSION: 1. Mild patchy micronodular and tree-in-bud opacity in the right upper lobe. Acute infectious bronchiolitis or a small volume of aspiration could have this appearance. Clinical correlation is recommended. 2. Heterogeneous, mildly enlarged thyroid gland with indeterminate heterogeneous nodular lesions. Although nonspecific, a thyroid goiter could have this appearance. Alternative pathology is not excluded. This appearance is similar on the comparison exam from June 03, 2024; however, the thyroid gland is only partially included in the field of view on both studies. PROCEDURE INFORMATION: Exam: CT Abdomen And Pelvis With Contrast Exam date and time: 12/19/2024 3:56 PM Age: 64 years old Clinical indication: Other: Abdominal pain, weight loss, SOB; Other: Concern for CA TECHNIQUE: Imaging protocol: Computed tomography of the abdomen and pelvis with contrast. 3D rendering (Not supervised by radiologist): MIP and/or 3D reconstructed images were created by the technologist. Contrast material: OMNII 350; Contrast volume: 100 ml; Contrast route: INTRAVENOUS (IV); COMPARISON: CT CHEST W 06/03/2024 2:33 AM FINDINGS: Liver: Normal appearing liver. Gallbladder and biliary ducts: Gallbladder partially collapsed. No calcified gallstones seen. No biliary dilatation. Pancreas: Coarse calcifications in the pancreatic head, nonspecific but suspicious for prior or recurrent pancreatitis. Mild-moderate pancreatic atrophy. Spleen: Normal appearing spleen. Adrenal glands: Normal appearing adrenal glands. Kidneys and ureters: 2.1 cm right renal cyst with a density of 19 Hounsfield units on image 33 of series 20. 2.3 cm left renal cyst with a density of 5 Hounsfield units on image 26 of series 20. Mild symmetric perinephric edema, nonspecific. No hydronephrosis. No obstructing ureteral stones. Stomach and bowel: No oral contrast. Stomach partially decompressed. No small bowel dilatation to suggest obstruction. Fluid in the cecum, ascending colon, and transverse colon suspicious for impending diarrhea. Normal-appearing fecal material through the descending colon, sigmoid colon, and rectum. Appendix: Appendix not identified, obscured if present. Correlation with surgical history recommended. Intraperitoneal space: No gross ascites or free air. Vasculature: No abdominal aortic aneurysm. Moderately extensive atherosclerotic calcification. Lymph nodes: No pathologically enlarged mediastinal or retroperitoneal lymph nodes. Mildly prominent left groin and left pelvic sidewall nodes with a 1.5 cm x 1.0 cm node along the left pelvic sidewall on image 73 of series 20. Urinary bladder: Urinary bladder partially decompressed. Circumferential bladder wall thickening with hazy indistinctness of the bladder margins. Reproductive: Normal-appearing prostate gland and seminal vesicles. Bones/joints: No acute fracture seen among the bones of the abdomen or pelvis. Congenital lumbar stenosis. Multilevel central canal narrowing and neural foraminal narrowing. Soft tissues: Small fat containing left inguinal region hernia. IMPRESSION: 1. Urinary bladder partially decompressed but circumferentially thick-walled with hazy indistinctness of the bladder margins. Acute cystitis could have this appearance although an artifactual appearance created by underdistention can also produce apparent bladder wall thickening. Clinical correlation is recommended. 2. Mildly prominent lymph nodes along the left pelvic sidewall and in the left groin, probably reactive given provided clinical history of cellulitis in the left lower extremity although clinical correlation is recommended. 3. Fluid in the cecum, ascending colon, and transverse colon, nonspecific but suspicious for impending diarrhea. Normal-appearing fecal material in the downstream colon and rectum. Otherwise, no acute bowel pathology demonstrated. Dictated and Authenticated by: Allen Kim MD. Orderin Calvin Mcknight MD
--- NOTE | 2024-12-19 17:04 | DI.VRAD_ITS ---
PROCEDURE INFORMATION: Exam: XR Left Tibia and Fibula Exam date and time: 12/19/2024 4:03 PM Age: 64 years old Clinical indication: Cellulitis; Lower leg; Left; Prior surgery; Surgery date: 6+ months; Surgery type: 5+ years ago FX TECHNIQUE: Imaging protocol: Radiologic exam of the left tibia and fibula. Views: 2 views. COMPARISON: CR LEFT TIB/FIB 03/25/2018 2:56 PM FINDINGS: Bones/joints: Four views of the left foreleg reveal no acute fracture or dislocation. There is a compression plate with 9 screws transfixing an old fracture through the distal tibial shaft. There is no evidence of hardware breakage or loosening. No focal cortical erosion is demonstrated. There is mild diffuse osteopenia. Soft tissues: There is soft tissue swelling throughout the left foreleg. There are scattered soft tissue calcifications, nonspecific. IMPRESSION: 1. Prior ORIF of an old fracture through the distal left tibial shaft. 2. No acute fracture or dislocation seen. 3. Diffuse soft tissue swelling throughout the left foreleg in keeping with the provided history of cellulitis. 4. Mild diffuse osteopenia. No focal cortical erosion is seen; however, if there is concern for osteomyelitis, please note that nuclear medicine bone scanning and MRI of both more sensitive for the detection of osteomyelitis. Dictated and Authenticated by: Allen Kim MD. Orderin Calvin Mcknight MD
[2024-12-19 17:32] LABS: Bilirubin Negative (Negative); Blood Small (Negative); Clarity Cloudy (Clear); Glucose 500 mg/dL (Negative); Ketones Negative (Negative); Leukocyte Esterase Moderate (Negative); Nitrite Negative (Negative); pH 5.5 (5-8)
[2024-12-19 17:41] LABS: C & S Indicated? Yes; WBC >50 HPF (0-5)
[2024-12-19] MEDS: Magnesium Oxide 400 MG TAB 800 MG PO (17:51)
[2024-12-19] MEDS: Amox. 875/Clav. 125, 2 TABS/BTL 1 TAB PO (17:52)
== END 2024-12-19 18:07 | disposition home or self-care (01) ==
PROVIDERS: Emergency Provider Physician Assistant; PCP Family Medicine
DX: J18.9 Pneumonia, unspecified organism (principal); N39.0 Urinary tract infection, site not specified; L03.116 Cellulitis of left lower limb; E83.42 Hypomagnesemia; E11.65 Type 2 diabetes mellitus with hyperglycemia; E11.621 Type 2 diabetes mellitus with foot ulcer; L97.428 Non-pressure chronic ulcer of left heel and midfoot with other specified severity; I48.91 Unspecified atrial fibrillation; E11.40 Type 2 diabetes mellitus with diabetic neuropathy, unspecified; I95.9 Hypotension, unspecified; J44.9 Chronic obstructive pulmonary disease, unspecified; I25.10 Atherosclerotic heart disease of native coronary artery without angina pectoris; E78.5 Hyperlipidemia, unspecified; E03.9 Hypothyroidism, unspecified; Z79.84 Long term (current) use of oral hypoglycemic drugs; Z79.4 Long term (current) use of insulin; Z79.899 Other long term (current) drug therapy
CPT/HCPCS: 00123; 36415; 74177; 80053; 82962; 83690; 85652; 93005; 93308; 96360; 99285; 71260; 73590; 81003; 81015; 83036; 83605; 83735; 84484; 85025; 86140; 87086; 93010; J3490

== ENCOUNTER 2024-12-19 13:30 | Outpatient (REF) | payer MEDICARE, SELFPAY ==
--- NOTE | 2024-12-21 08:52 | NUR.NOTE ---
Accessed Pt chart to see if Pt was prescribed an antibiotic. This is for the specimen report.
== END 2024-12-19 13:31 | disposition home or self-care (01) ==
LOC: LBN 13:30
PROVIDERS: PCP Family Medicine; Visit Provider Family Medicine
DX: R30.0 Dysuria (principal)
CPT/HCPCS: 87086

== ENCOUNTER 2024-12-21 12:27 | Outpatient (REF) | payer MEDICARE, SELFPAY | END 2024-12-21 12:28 | disposition home or self-care (01) | LOC: NCHCN 12:27 | PROVIDERS: PCP Family Medicine; Visit Provider Family Medicine | DX: E13.621 Other specified diabetes mellitus with foot ulcer (principal) | CPT/HCPCS: 87070; 87205 ==

== ENCOUNTER 2025-01-21 13:16 | Outpatient (REF) | payer MEDICARE, SELFPAY | END 2025-01-21 13:17 | disposition home or self-care (01) | LOC: NCHCN 13:16 | PROVIDERS: PCP Family Medicine; Visit Provider Family Medicine | DX: E13.621 Other specified diabetes mellitus with foot ulcer (principal) | CPT/HCPCS: 87077; 87070; 87205 ==

== ENCOUNTER 2025-02-27 11:10 | Outpatient (REF) | payer MEDICARE, SELFPAY ==
[2025-02-27 22:24] LABS: Campylobacter PCR Negative (Negative); Salmonella PCR Negative (Negative); Shiga Toxin PCR Negative (Negative); Shigella/Enteroinvasive Ecoli Negative (Negative)
[2025-03-09 17:29] LABS: Lactoferrin, Qt, Stool <6.25 mcg/mL (<7.25)
== END 2025-02-27 11:11 | disposition home or self-care (01) ==
LOC: NCHCN 11:10
PROVIDERS: PCP Family Medicine; Visit Provider Family Medicine
DX: R19.7 Diarrhea, unspecified (principal)
CPT/HCPCS: 83631; 87015; 87269; 87272; 87505; 83630

== ENCOUNTER 2025-04-15 12:35 | Outpatient (REF) | payer MEDICARE, SELFPAY ==
[2025-04-15 15:43] LABS: ALT 66 U/L (16-63); AST 46 U/L (15-37); Albumin 3.2 g/dL (3.4-5.0); Alkaline Phosphatase 94 U/L (46-116); Anion Gap 8.1 mmol/L (3-11); BUN 13 mg/dL (7-18); Bilirubin, Total 0.3 mg/dL (0.2-1.0); CO2 27.9 mmol/L (21.0-32.0); CREATININE 0.7 mg/dL (0.70-1.30); Calcium 8.5 mg/dL (8.5-10.1); Chloride 109 mmol/L (98-107); Estimated GFR 101.62 (mL/min/1.73m2); Glucose 141 mg/dL (74-106); Potassium 4.4 mmol/L (3.5-5.1); Sodium 145 mmol/L (136-145); Total Protein 7.2 g/dL (6.4-8.2)
[2025-04-15 15:49] LABS: Hemoglobin A1C 11.1 % (<5.7)
[2025-04-15 22:15] LABS: PSA, Screening 0.4 ng/mL (<=4.5)
== END 2025-04-15 12:36 | disposition home or self-care (01) ==
LOC: NCHCN 12:35
PROVIDERS: PCP Family Medicine; Visit Provider Family Medicine
DX: E11.65 Type 2 diabetes mellitus with hyperglycemia (principal); Z12.5 Encounter for screening for malignant neoplasm of prostate
CPT/HCPCS: 80053; 84153; 83036

== ENCOUNTER 2025-05-09 00:32 | Outpatient (CLI) | payer MEDICARE, SELFPAY ==
--- NOTE | 2025-05-09 | DI.US_ITS ---
Exam(s) US THYROID EXAM: US THYROID CLINICAL HISTORY: THYROID NODULE,E04.1. TECHNIQUE: Ultrasound thyroid performed using standard protocol. COMPARISON: CT CT CHEST/ABD/PEL W from 12/19/2024 FINDINGS: ISTHMUS: 4 mm RIGHT LOBE: Size: 5.5 x 3.2 x 2.2 cm Echogenicity: Normal. Vascularity: Normal. Nodules: Upper pole nodule 1.7 x 1.2 x 1.2 cm, solid, hypoechoic wider than tall with smooth margins. No echogenic foci. TR 4. Lower pole nodule measuring 1.8 x 1.9 x 1.8 cm. Solid, hypoechoic, taller than wide, smoothly marginated, without echogenic foci, TR 5. LEFT LOBE: Size: 5.0 by 3.1 x 2.2 cm Echogenicity: Normal. Vascularity: Normal. Nodules: Upper pole nodule measuring 2.2 x 1.8 x 1.6 cm. Solid, hypoechoic, taller than wide, smoothly marginated without echogenic foci, TR 5. Lower pole nodule measuring 1.2 x 1.3 x 1.5 cm. This nodule is somewhat difficult to visualize. Solid, very hypoechoic, wider than tall, smoothly marginated, without echogenic foci, TR 4. OTHER FINDINGS: No adenopathy. IMPRESSION: Two nodules in each lobe of the thyroid, TR 4 and TR 5. Biopsy could be considered due to size. DATA REPOSITORY:
== END 2025-05-09 00:52 ==
LOC: DI 00:32
PROVIDERS: PCP Family Medicine; Visit Provider Family Medicine
DX: E04.1 Nontoxic single thyroid nodule (principal)
CPT/HCPCS: 76536

== ENCOUNTER → 2025-05-10 09:52 | Outpatient (BNVA) | payer MEDICARE, SELFPAY | PROVIDERS: PCP Family Medicine; Referring Provider Family Medicine; Visit Provider Podiatrist | DX: L97.522 Non-pressure chronic ulcer of other part of left foot with fat layer exposed (principal); E11.621 Type 2 diabetes mellitus with foot ulcer; B35.1 Tinea unguium; L60.3 Nail dystrophy; B07.0 Plantar wart | CPT/HCPCS: 11042 ==

== ENCOUNTER 2025-07-26 09:52 | Outpatient (REF) | payer MEDICARE, SELFPAY | END 2025-07-26 09:53 | disposition home or self-care (01) | LOC: NCHCN 09:52 | PROVIDERS: PCP Family Medicine; Visit Provider Family Medicine | DX: E13.621 Other specified diabetes mellitus with foot ulcer (principal) | CPT/HCPCS: 87077; 87070; 87186; 87205 ==

== ENCOUNTER 2025-08-01 02:20 | Outpatient (CLI) | payer MEDICARE, SELFPAY ==
--- NOTE | 2025-08-01 11:25 | DI.RAD_ITS ---
Exam(s) XR FOOT LT COMPLETE EXAM: XR FOOT LT COMPLETE CLINICAL HISTORY: SKIN ULCER DUE TO DIABETES,E13.621. TECHNIQUE: 2D digital imaging was performed. Three views. COMPARISON: CR XR FOOT RT COMPLETE from 04/06/2024 FINDINGS: BONES: No acute fracture is present. No bony destructive lesion is seen. Small calcaneal enthesophytes. JOINTS: No dislocation present. Hammertoe deformities. Mild intertarsal degenerative changes. SOFT TISSUE: Mild dorsal swelling. IMPRESSION: Mild degenerative changes and hammertoe deformities. DATA REPOSITORY: RADIATION DOSE DELIVERED:
== END 2025-08-01 02:40 ==
LOC: DI 02:20
PROVIDERS: PCP Family Medicine; Visit Provider Family Medicine
DX: E11.621 Type 2 diabetes mellitus with foot ulcer (principal); M19.072 Primary osteoarthritis, left ankle and foot; M20.42 Other hammer toe(s) (acquired), left foot
CPT/HCPCS: 73630

== ENCOUNTER 2025-08-01 03:29 | Outpatient (CLI) | payer MEDICARE, SELFPAY ==
[2025-08-01 12:27] LABS: Abs Immature Grans 0.02 10^3/uL (0.0-0.06); HCT 44.3 % (40.0-50.0); HGB 14.2 g/dL (13.5-17.5); Immature Grans % 0.3 %; MCH 29.3 pg (27.0-33.0); MCHC 32.1 % (32.0-36.0); MCV 91 fL (80-95); MPV 9.4 fL (8.0-11.0); Platelet Count 242 10^3/uL (130-400); RBC 4.85 10^6/uL (4.36-5.78); RDW 14.2 % (11.8-14.1); RDW-SD 47.9 fL; WBC 6.02 10^3/uL (4.4-10.8)
[2025-08-01 12:33] LABS: ESR 8 mm/hr (0-20)
[2025-08-01 12:51] LABS: Hemoglobin A1C 9.4 % (<5.7)
[2025-08-01 13:12] LABS: Anion Gap 9.8 mmol/L (3-11); BUN 11 mg/dL (7-18); CO2 26.2 mmol/L (21.0-32.0); Calcium 8.8 mg/dL (8.5-10.1); Chloride 106 mmol/L (98-107); Estimated GFR 94.19 (mL/min/1.73m2); Glucose 315 mg/dL (74-106); Potassium 4.7 mmol/L (3.5-5.1); Sodium 142 mmol/L (136-145)
[2025-08-01 13:20] LABS: TSH (W/Ref FT4) 1.15 uIU/mL (0.36-3.74)
[2025-08-01 13:26] LABS: ALT 88 U/L (16-63); AST 37 U/L (15-37); Albumin 3.4 g/dL (3.4-5.0); Alkaline Phosphatase 107 U/L (46-116); Bilirubin, Direct 0.1 mg/dL (0.0-0.2); Bilirubin, Total 0.4 mg/dL (0.2-1.0); Total Protein 7.2 g/dL (6.4-8.2)
[2025-08-01 22:24] LABS: CRP, High Sensitivity 3.92 mg/L (See Note)
[2025-08-02 10:33] LABS: Lyme Ab w Rflx to Lyme Confirm Negative (Negative)
[2025-08-02 10:55] LABS: Hepatitis A Antibody IgM Negative (Negative); Hepatitis C Ab w Rflx HCV PCR Reactive (Negative)
[2025-08-02 13:34] LABS: Albumin 53.5 % (55.8-66.1); Albumin g/dL 3.4 g/dL (3.6-5.2); Alpha 1 g/dL 0.30 g/dL (0.15-0.40); Alpha 2 g/dL 0.90 g/dL (0.50-1.00); Beta g/dL 0.90 g/dL (0.60-1.20); Gamma g/dL 0.90 g/dL (0.60-1.60); Total Protein 6.4 g/dL (6.3-8.2)
[2025-08-03 19:19] LABS: B. miyamotoi PCR Negative (Negative); Babesia divergens/MO-1 Negative (Negative); Ehrlichia muris eauclairensis Negative (Negative)
[2025-08-04 12:14] LABS: HBc IgM Ab, S Negative (Negative)
== END 2025-08-01 03:30 | disposition home or self-care (01) ==
LOC: LBO 03:29
PROVIDERS: Internal Medicine Gastroenterology; PCP Family Medicine; Visit Provider Family Medicine
DX: R19.7 Diarrhea, unspecified (principal); R79.89 Other specified abnormal findings of blood chemistry; E08.43 Diabetes mellitus due to underlying condition with diabetic autonomic (poly)neuropathy; G62.9 Polyneuropathy, unspecified
CPT/HCPCS: 36415; 80048; 80076; 82784; 85652; 86141; 86704; 86709; 86803; 87340; 87522; 87798; 73630; 83036; 84165; 84443; 85025; 86618; 86705

== ENCOUNTER 2025-08-02 20:26 | Outpatient (REF) | payer MEDICARE, SELFPAY ==
[2025-08-02 22:28] LABS: EPI 027-NAP1-B1 PRESUMPTIVE NEGATIVE
[2025-08-04 11:09] LABS: Campylobacter PCR Negative (Negative); Shiga Toxin PCR Negative (Negative); Shigella/Enteroinvasive Ecoli Negative (Negative)
[2025-08-06 15:45] LABS: Pancreatic Elastase, F <40 mcg/g
== END 2025-08-02 20:27 | disposition home or self-care (01) ==
LOC: LBN 20:26
PROVIDERS: PCP Family Medicine; Visit Provider Internal Medicine Gastroenterology
DX: R19.7 Diarrhea, unspecified (principal)
CPT/HCPCS: 87015; 87269; 87272; 87505; 82656; 82710; 83993